=== PATIENT | female | born 1975 | race Caucasian/White ===

== ENCOUNTER 2019-06-13 18:35 | Emergency (ER) | payer OTHER, MEDICAID, SELFPAY ==
[2019-06-13 18:55] VITALS: BP 154/96; PULSE 85; RESP 16; TEMP 36.3; O2SAT 99; BMI 26.1
--- NOTE | 2019-06-13 19:20 | PC.NURSE ---
pt resting in bed. reports 51 days sober ETOH. having swelling of hands and feet. no swelling noted on assessment. 2+ pulses +CSM. reports yesterday she felt achey and fatigued and h/o low iron. AAOx3, lungs clear. connected to cardiac monitoring. 84 NSR. 20G IV placed and labs drawn and sent per protocol orders. awaiting MD assessment.
[2019-06-13 19:33] LABS: Prothrombin Time 11.9 SECONDS (10.1-12.7)
[2019-06-13 19:38] LABS: Blood Urea Nitrogen 15 mg/dL (7-17); Calcium 9.5 mg/dL (8.4-10.2); Carbon Dioxide 26 mmol/L (22-32); Chloride 101 mmol/L (98-107); Estimated Glomerular Filt Rate > 60.0 mL/min (>60); Glucose 132 mg/dL (70-100); Potassium 4.3 mmol/L (3.4-5.1); Sodium 136 mmol/L (137-145)
[2019-06-13 19:39] LABS: HEMOLYSIS 76 (0-50)
[2019-06-13 19:47] LABS: Add Manual Diff / Slide Review NO; Basophils Absolute Auto 200 /uL (0-100); Basophils Percent Auto 1.5 % (0-2); Eosinophils Absolute Auto 300 /uL (0-450); Eosinophils Percent Auto 2.7 % (2-4); Hematocrit 41.5 % (36-46); Hemoglobin 14.5 g/dL (12.0-16.0); Lymphocytes Absolute Auto 3400 /uL (1100-4500); Lymphocytes Percent Auto 31.4 % (25-40); Mean Corpuscular HGB Conc 34.9 % (30-36); Mean Corpuscular Hemoglobin 32.4 PG (26-34); Mean Corpuscular Volume 92.7 fL (80-100); Monocytes Absolute Auto 900 /uL (0-900); Monocytes Percent Auto 8.2 % (3-14); Neutrophils Absolute Auto 6100 /uL (1500-7000); Neutrophils Percent Auto 56.2 % (50-75); Platelet Count 227 X10^3/uL (150-400); Red Blood Cell Count 4.48 X10^6/uL (4.0-5.2); Red Cell Distribution Width 12.6 % (11.6-14.8); White Blood Cell Count 10.8 X10^3/uL (4.5-11.0)
--- NOTE | 2019-06-13 21:46 | ED.EXTPRO ---
HPI - Extremity Problem General Chief complaint: Extremity Problem,Nontraumatic Stated complaint: swelling in hands and feet Time Seen by Provider: 06/13/19 21:36 Source: patient Mode of arrival: ambulatory Limitations: no limitations History of Present Illness HPI Narrative: Patient is a 43-year-old female who presents with swelling and pain in both of her feet and hands for the last 5 days. 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 She says her hands have been hurting her feet are definitely swollen at the end of the day and hurt. She does work good tennis shoes while at work. She has no chest pain no shortness of breath no palpitations. She has a history of alcoholism she has been clean for 51 days. She also has a remote history of diabetes but lost a bunch of weight. No previous history of neuropathy. Related Data Home Medications Medication Instructions Recorded Confirmed risperidone [Risperdal] 1 mg PO HS #0 05/20/11 Previous Rx's Medication Instructions Recorded cyclobenzaprine 10 mg PO TIDPRN #60 06/07/13 epinephrine [EpiPen 2-Amadeo] 0.3 mg IM SEE INSTRUCTIONS #1 kit 07/24/13 Allergies Allergy/AdvReac Type Severity Reaction Status Date / Time acetaminophen [From PERCOCET] Allergy Unknown Verified 06/13/19 18:55 aspirin [From PERCODAN] Allergy Unknown Verified 06/13/19 18:55 lithium [LITHIUM] Allergy Unknown Verified 06/13/19 18:55 morphine [MORPHINE] Allergy Unknown HIVES Verified 06/13/19 18:55 oxycodone [From PERCODAN] Allergy Unknown Verified 06/13/19 18:55 Review of Systems Review of Systems ROS Unobtainable: All systems reviewed & are unremarkable except as noted in HPI and below Constitutional Constitutional: Denies chills, Denies fever(s), Denies lethargy and Denies weakness Cardiovascular Cardiovascular: Denies chest pain, Denies irregular heart rhythm, Denies lightheadedness, Denies palpitations, Denies dyspnea, Denies dyspnea on exertion and Denies orthopnea Respiratory Respiratory: Denies cough, Denies dyspnea, Denies dyspnea on exertion and Denies wheezing Gastrointestinal Gastrointestinal: Denies abdominal pain, Denies change in bowel habits, Denies diarrhea, Denies nausea and Denies vomiting Musculoskeletal Musculoskeletal: Reports as per HPI Integumentary/Breasts Skin/Breast: Denies pruritus, Denies erythema, Denies rash and Denies wounds Neurologic Neurologic: Denies weakness Endocrine Endocrine: Denies palpitations Allergic/Immunologic Allergic/Immunologic: Denies wheezing [facility] Medical History Alcoholism (Acute) Social History (Updated 06/13/19 @ 21:52 by Eve Mantilla DO) Smoking Status: Current every day smoker alcohol intake: former Social History Smoking Status: Current every day smoker alcohol intake: former Exam Initial Vital Signs Initial Vital Signs: Vital Signs Temperature 97.3 F L 06/13/19 18:55 Pulse Rate 85 06/13/19 18:55 Respiratory Rate 16 06/13/19 18:55 Blood Pressure 154/96 H 06/13/19 18:55 Pulse Oximetry 99 06/13/19 18:55 GENERAL: Well-appearing, well-nourished and in no acute distress. HEENT: Head atraumatic,EOMI, pupils reactive, face symmetric CARDIOVASCULAR: Regular rate and rhythm without murmurs, rubs or gallops. RESPIRATORY: Breath sounds equal bilaterally, no wheezes rales or rhonchi. ABDOMEN: Soft, nontender. Normoactive bowel sounds all 4 quadrants. No guarding or rebound. EXTREMITIES: Normal range of motion, no clubbing or edema. Minimal tenderness on the Neurovascularly intact NEUROLOGICAL: Alert and oriented x4.Normal gait and speech. SKIN: Warm, dry, no laceration, no petechiae, no rashes or lesions. Course Orders Ordered: ED Orders 06/13/19 19:15 Basic Metabolic Panel Stat Complete Blood Count AUTO DIFF Stat Prothrombin Time INR Stat Vital Signs Vital signs: Vital Signs - 8 hr 06/13/19 18:55 06/13/19 22:00 Temperature 97.3 F L 97.6 F Pulse Rate 85 63 Respiratory Rate 16 16 Blood Pressure 154/96 H 119/76 Pulse Oximetry 99 98 MDM - Extremity (Nontraumatic) Lab Data Result diagrams: 06/13/19 19:15 06/13/19 19:15 Labs: Lab Results 06/13/19 06/13/19 06/13/19 Range/Units 19:15 19:15 19:15 WBC 10.8 (4.5-11.0) X10^3/uL RBC 4.48 (4.0-5.2) X10^6/uL Hgb 14.5 (12.0-16.0) g/dL Hct 41.5 (36-46) % MCV 92.7 (80-100) fL MCH 32.4 (26-34) PG MCHC 34.9 (30-36) % RDW 12.6 (11.6-14.8) % Plt Count 227 (150-400) X10^3/uL Neut % (Auto) 56.2 (50-75) % Lymph % (Auto) 31.4 (25-40) % [place] % (Auto) 8.2 (3-14) % Eos % (Auto) 2.7 (2-4) % Baso % (Auto) 1.5 (0-2) % Neut # (Auto) 6100 (2084-7625) /uL Lymph # (Auto) 3400 (7586-4224) /uL [place] # (Auto) 900 (0-900) /uL Eos # (Auto) 300 (0-450) /uL Baso # (Auto) 200 H (0-100) /uL PT 11.9 (10.1-12.7) SECONDS INR 1.0 (0.9-1.3) Sodium 136 L (137-145) mmol/L Potassium 4.3 (3.4-5.1) mmol/L Chloride 101 (98-107) mmol/L Carbon Dioxide 26 (22-32) mmol/L BUN 15 (7-17) mg/dL Creatinine 0.50 L (0.52-1.04) mg/dL Estimated GFR > 60.0 (>60) mL/min BUN/Creatinine Ratio 30.0 H (6-22) Glucose 132 H (70-100) mg/dL Calcium 9.5 (8.4-10.2) mg/dL Urine Dip Bedside Urine Glucose Negative Bedside Urine Bilirubin - Negative Bedside Urine Ketone - Negative Urine Specific [place] 1.010 Bedside Urine Occult Blood - Negative Bedside Urine pH 7.5 Bedside Urine Protein - Negative Bedside Urine Urobilinogen - Negative Bedside Urine Nitrite - Negative Bedside Urine Leukocytes - Negative Esterase MDM Narrative Medical decision making narrative: The patient has no obvious or visual swelling of her lower extremities now this time. She started a new job as this is likely her body getting use to do work it is doing. At this time I see no need for any further imaging fall or testing. Blood work kidney function all reassuring. Discharge Plan Departure Patient Disposition: Home Clinical Impression: Venous stasis of both lower extremities Discharge Date/Time: 06/13/19 22:01 Instructions: DI for Edema Due to Venous Stasis Activity Restrictions/Additional Instructions: *You have been diagnosed with venous stasis *What to do: Recommend compression socks while at work. Elevating legs at night when he home. *Continue to take medications as directed Tylenol 1000 mg every 6 hours if needed for pain *Follow up with your primary care provider in 2-3 days *Return to ER if you should have increasing shortness of breath, leg pain, redness, fever or any new, worsening or concerning symptoms Prescriptions: No Action risperidone [Risperdal] 1 MG tablet 1 mg PO HS Qty: 0 RF: 0 cyclobenzaprine 10 MG tablet 10 mg PO TIDPRN Qty: 60 RF: 3 epinephrine [EpiPen 2-Amadeo] 0.3 MG/0.3 ML auto-injector 0.3 mg IM SEE INSTRUCTIONS Qty: 1 RF: 2
[2019-06-13 22:00] VITALS: BP 119/76; PULSE 63; RESP 16; TEMP 36.4; O2SAT 98
== END 2019-06-13 22:01 | disposition home or self-care (01) ==
PROVIDERS: Emergency Provider Emergency Medicine
DX: I87.8 Other specified disorders of veins (principal)
CPT/HCPCS: 36591; 80048; 81003; 85025; 85610; 93041; 99283; 99284

== ENCOUNTER 2020-11-24 13:27 | Emergency (ER) | payer OTHER, MEDICAID, SELFPAY ==
[2020-11-24] VITALS (11 sets, daily range): BP systolic 160–194; BP diastolic 95–115; PULSE 63–78; RESP 14–25; TEMP 36.6; O2SAT 97–98; BMI 23.5
--- NOTE | 2020-11-24 13:53 | DI.RAD.S_ITS ---
PROCEDURE: XR CHEST 1V INDICATIONS: HTN, cough TECHNIQUE: One view of the chest was acquired. COMPARISON: [facility], , CHEST 1VW (PORTABLE), 09/24/2014, 21:52. FINDINGS: Surgical changes and devices: None. Lungs and pleura: Lungs are clear. No pleural effusions or pneumothorax. Mediastinum: Mediastinal contours appear normal. Heart size is normal. Bones and chest wall: No suspicious bony lesions. Overlying soft tissues appear unremarkable. IMPRESSION: No acute cardiopulmonary abnormality. Dictated by: Ramses De M.D. on 11/24/2020 at 14:21 Approved by: Ramses De M.D. on 11/24/2020 at 14:22
--- NOTE | 2020-11-24 13:55 | ED.GENADULT ---
HPI - General Adult <VAHE Leonard - Last Filed: 11/24/20 16:34> General Chief complaint: Hypertension Stated complaint: OUT OF MEDICATION/HIGH BLOOD PRESS Time Seen by Provider: 11/24/20 13:31 Source: patient Mode of arrival: Ambulatory Limitations: no limitations History of Present Illness HPI narrative: 45yo female with a history of HTN and DM presents to the emergency department for a refill of her blood pressure medication. She states she has not taken in the past 3 months, she usually takes lisinopril 10 mg daily. She does not have a PCP at this time. Patient states when her blood pressure becomes elevated she gets episodes of dizziness (she describes as lightheadedness). She states over the past 3 days she has been intermittently dizzy which is worse when standing up, yesterday she had multiple episodes of vomiting. Today she remains nauseated without vomiting, she has been able to drink fluids but not eat any food due to the nausea. She denies any cough, rhinorrhea, chest pain, vertigo, shortness of breath, or any other concerns. Related Data Home Medications Medication Instructions Recorded Confirmed risperidone [Risperdal] 1 mg PO HS #0 05/20/11 Previous Rx's Medication Instructions Recorded cyclobenzaprine 10 mg PO TIDPRN #60 06/07/13 epinephrine [EpiPen 2-Amadeo] 0.3 mg IM SEE INSTRUCTIONS #1 kit 07/24/13 lisinopril 10 mg PO DAILY #30 tab 11/24/20 nitrofurantoin monohyd/m-cryst 100 mg PO BID 5 Days #10 cap 11/24/20 [Macrobid] ondansetron 4 mg PO Q6H PRN #10 tab 11/24/20 Allergies Allergy/AdvReac Type Severity Reaction Status Date / Time acetaminophen [From PERCOCET] Allergy Unknown Verified 11/24/20 13:43 aspirin [From PERCODAN] Allergy Unknown Verified 11/24/20 13:43 lithium [LITHIUM] Allergy Unknown Verified 11/24/20 13:43 morphine [MORPHINE] Allergy Unknown HIVES Verified 11/24/20 13:43 oxycodone [From PERCODAN] Allergy Unknown Verified 11/24/20 13:43 Review of Systems <VAHE Leonard - Last Filed: 11/24/20 16:34> Review of Systems Narrative: REVIEW OF SYSTEMS: GENERAL: Denies fevers. HENT: No head trauma. EYES: No loss of vision, double vision, eye pain, irritation or discharge. CARDIOVASCULAR: No chest pain or syncope. Reports some dizziness, see HPI. RESPIRATORY: No shortness of breath. GASTROINTESTINAL: Reports nausea vomiting, see HPI. MUSCULOSKELETAL: No weakness or injury. INTEGUMENTARY: No rash, lesions, or pruritus. NEURO: No memory loss, or confusion. Reports some dizziness, see HPI. Patient History <VAHE Leonard - Last Filed: 11/24/20 16:34> Medical History (Updated 11/24/20 @ 16:01 by VAHE Leonard) Alcoholism Social History Smoking Status: Current every day smoker alcohol intake: former Smoking Status: Current every day smoker alcohol intake frequency: a few times a week Substance Use Type: does not use Exam <VAHE Leonard - Last Filed: 11/24/20 16:34> Initial Vital Signs Initial Vital Signs: Vital Signs Temperature 97.8 F 11/24/20 13:38 Pulse Rate 73 11/24/20 13:38 Respiratory Rate 14 11/24/20 13:38 Blood Pressure 194/104 H 11/24/20 13:38 Pulse Oximetry 97 11/24/20 13:38 PHYSICAL EXAMINATION: GENERAL: Awake and alert. HENT: Normocephalic, atraumatic. Hearing intact. Oral mucosa is pink and moist. EYES: Conjunctiva pink, sclera white, no periorbital swelling. CARDIOVASCULAR: S1 and S2 sounds normal. Regular rate and rhythm, no murmurs, clicks, or bruits. No pedal edema. RESPIRATORY: Normal respiratory rate, trachea midline, airway patent. No stridor, nasal flaring or accessory muscle use. Lungs are clear in all lacey without wheeze, rhonchi, or crackles. GASTROINTESTINAL: Bowel sounds normoactive. Abdomen is soft and non-tender. No organomegaly, no palpable masses. MUSCULOSKELETAL: Normal gait and coordination. Equal tone and mass bilaterally. EXTREMITIES: CMS intact, no pedal edema. SKIN: Warm, dry, soft, appropriate color for ethnicity. No lesions, rashes, or wounds to visualized areas. NEURO: Alert and Oriented X 3. Good coordination. No ataxia, or sensory deficits, or cognitive issues. PSYCH: Appropriate affect and mood. <Sindhu Maher DO - Last Filed: 11/25/20 09:59> Initial Vital Signs Initial Vital Signs: Vital Signs Temperature 97.8 F 11/24/20 13:38 Pulse Rate 73 11/24/20 13:38 Respiratory Rate 14 11/24/20 13:38 Blood Pressure 194/104 H 11/24/20 13:38 Pulse Oximetry 97 11/24/20 13:38 Course <VAHE Leonard - Last Filed: 11/24/20 16:34> Course Course Narrative: Patient was given fluids and Zofran in the emergency department. Patient states she is feeling better--dizziness has completely resolved, was given a p.o. trial and patient was able to drink fluids and eat a snack without vomiting. Orders Ordered: Discontinued Medications Sodium Chloride (Normal Saline 0.9%) 1,000 mls @ 1,000 mls/hr IV BOLUS ONE Stop: 11/24/20 14:52 Last Infusion: 11/24/20 15:33 Dose: 0 mls/hr Documented by: Admin: 11/24/20 14:19 Dose: 1,000 mls/hr Documented by: SHANI Ondansetron HCl (Ondansetron 4 Mg/2 Ml Inj) 4 mg IV NOW ONE Stop: 11/24/20 13:54 Last Admin: 11/24/20 14:19 Dose: 4 mg Documented by: SHANI Consultations Consultation #1: Patient staffed with Dr. Maher. Vital Signs Vital signs: Vital Signs - 8 hr 11/24/20 13:38 11/24/20 13:39 11/24/20 14:00 Temperature 97.8 F Pulse Rate 73 75 78 Pulse Rate [Orthostatic Lying] Pulse Rate [Orthostatic Sitting] Pulse Rate [Orthostatic Standing] Respiratory Rate 14 24 Blood Pressure 194/104 H 194/101 H Blood Pressure [Orthostatic Lying] Blood Pressure [Orthostatic Sitting] Blood Pressure [Orthostatic Standing] Pulse Oximetry 97 98 97 11/24/20 14:01 11/24/20 14:23 11/24/20 14:30 Temperature Pulse Rate 76 66 75 Pulse Rate [Orthostatic Lying] Pulse Rate [Orthostatic Sitting] Pulse Rate [Orthostatic Standing] Respiratory Rate 25 H 19 17 Blood Pressure 185/99 H 179/101 H 190/95 H Blood Pressure [Orthostatic Lying] Blood Pressure [Orthostatic Sitting] Blood Pressure [Orthostatic Standing] Pulse Oximetry 98 98 98 11/24/20 15:00 11/24/20 15:10 11/24/20 15:13 Temperature Pulse Rate 70 Pulse Rate [Orthostatic Lying] 63 Pulse Rate [Orthostatic Sitting] 66 Pulse Rate [Orthostatic Standing] 74 Respiratory Rate 23 Blood Pressure 162/98 H 180/115 H Blood Pressure [Orthostatic Lying] 161/102 H Blood Pressure [Orthostatic Sitting] 165/109 H Blood Pressure [Orthostatic Standing] 180/115 H Pulse Oximetry 98 11/24/20 15:32 11/24/20 15:57 Temperature Pulse Rate 64 67 Pulse Rate [Orthostatic Lying] Pulse Rate [Orthostatic Sitting] Pulse Rate [Orthostatic Standing] Respiratory Rate 17 Blood Pressure 160/96 H Blood Pressure [Orthostatic Lying] Blood Pressure [Orthostatic Sitting] Blood Pressure [Orthostatic Standing] Pulse Oximetry 98 98 <Sindhu Maher, - Last Filed: 11/25/20 09:59> Orders Ordered: Discontinued Medications Sodium Chloride (Normal Saline 0.9%) 1,000 mls @ 1,000 mls/hr IV BOLUS ONE Stop: 11/24/20 14:52 Last Infusion: 11/24/20 15:33 Dose: 0 mls/hr Documented by: Admin: 11/24/20 14:19 Dose: 1,000 mls/hr Documented by: SHANI Ondansetron HCl (Ondansetron 4 Mg/2 Ml Inj) 4 mg IV NOW ONE Stop: 11/24/20 13:54 Last Admin: 11/24/20 14:19 Dose: 4 mg Documented by: SHANI Vital Signs Vital signs: Vital Signs - 8 hr 11/24/20 13:38 11/24/20 13:39 11/24/20 14:00 Temperature 97.8 F Pulse Rate 73 75 78 Pulse Rate [Orthostatic Lying] Pulse Rate [Orthostatic Sitting] Pulse Rate [Orthostatic Standing] Respiratory Rate 14 24 Blood Pressure 194/104 H 194/101 H Blood Pressure [Orthostatic Lying] Blood Pressure [Orthostatic Sitting] Blood Pressure [Orthostatic Standing] Pulse Oximetry 97 98 97 11/24/20 14:01 11/24/20 14:23 11/24/20 14:30 Temperature Pulse Rate 76 66 75 Pulse Rate [Orthostatic Lying] Pulse Rate [Orthostatic Sitting] Pulse Rate [Orthostatic Standing] Respiratory Rate 25 H 19 17 Blood Pressure 185/99 H 179/101 H 190/95 H Blood Pressure [Orthostatic Lying] Blood Pressure [Orthostatic Sitting] Blood Pressure [Orthostatic Standing] Pulse Oximetry 98 98 98 11/24/20 15:00 11/24/20 15:10 11/24/20 15:13 Temperature Pulse Rate 70 Pulse Rate [Orthostatic Lying] 63 Pulse Rate [Orthostatic Sitting] 66 Pulse Rate [Orthostatic Standing] 74 Respiratory Rate 23 Blood Pressure 162/98 H 180/115 H Blood Pressure [Orthostatic Lying] 161/102 H Blood Pressure [Orthostatic Sitting] 165/109 H Blood Pressure [Orthostatic Standing] 180/115 H Pulse Oximetry 98 11/24/20 15:32 11/24/20 15:57 Temperature Pulse Rate 64 67 Pulse Rate [Orthostatic Lying] Pulse Rate [Orthostatic Sitting] Pulse Rate [Orthostatic Standing] Respiratory Rate 17 Blood Pressure 160/96 H Blood Pressure [Orthostatic Lying] Blood Pressure [Orthostatic Sitting] Blood Pressure [Orthostatic Standing] Pulse Oximetry 98 98 Medical Decision Making <VAHE Leonard - Last Filed: 11/24/20 16:34> Medical Records Medical records reviewed: Yes I reviewed the patient's medical records. Lab Data Lab results reviewed: Yes I reviewed the patient's lab results. Result diagrams: 11/24/20 14:12 11/24/20 14:12 Labs: Lab Results 11/24/20 11/24/20 11/24/20 Range/Units 14:12 14:12 14:20 WBC 10.7 (4.5-11.0) X10^3/uL RBC 4.68 (4.0-5.2) X10^6/uL Hgb 16.3 H (12.0-16.0) g/dL Hct 46.7 H (36-46) % MCV 99.7 (80-100) fL MCH 34.8 H (26-34) PG MCHC 34.9 (30-36) % RDW 12.4 (11.6-14.8) % Plt Count 170 (150-400) X10^3/uL Neut % (Auto) 70.6 (50-75) % Lymph % (Auto) 21.0 L (25-40) % [place] % (Auto) 6.8 (3-14) % Eos % (Auto) 0.9 L (2-4) % Baso % (Auto) 0.7 (0-2) % Neut # (Auto) 7600 H (0057-8720) /uL Lymph # (Auto) 2300 (3153-0476) /uL [place] # (Auto) 700 (0-900) /uL Eos # (Auto) 100 (0-450) /uL Baso # (Auto) 100 (0-100) /uL Sodium 132 L (137-145) mmol/L Potassium 3.6 (3.4-5.1) mmol/L Chloride 98 (98-107) mmol/L Carbon Dioxide 31 (22-32) mmol/L BUN 6 L (7-17) mg/dL Creatinine 0.60 (0.52-1.04) mg/dL Estimated GFR > 60.0 (>60) mL/min BUN/Creatinine Ratio 10.0 (6-22) Glucose 163 H (70-100) mg/dL Calcium 9.7 (8.4-10.2) mg/dL Total Bilirubin 1.5 H (0.2-1.3) mg/dL AST 73 H (14-36) IU/L ALT 63 H (<35) IU/L Alkaline Phosphatase 97 (38-126) U/L Total Creatine Kinase 49 (30-135) U/L CK-MB (CK-2) TNP CK-MB (CK-2) Rel Index TNP Troponin I < 0.012 (0.01-0.034) ng/mL Total Protein 8.0 (6.3-8.2) g/dL Albumin 4.6 (3.5-5.0) g/dL Globulin 3.4 (1.7-4.1) g/dL Albumin/Globulin Ratio 1.4 (1.0-2.8) Lipase 67 (23-300) U/L Urine RBC (0-5/HPF) Urine WBC (0-5/HPF) Ur Squamous Epith Cells (0-5/HPF) Ur Transition Epith Cell (0-5/HPF) Urine Bacteria (None) Hyaline Casts (None) WBC Casts (None) Ur Culture Indicated? SARS-CoV-2 (PCR) Negative (Negative) 11/24/20 Range/Units 14:45 WBC (4.5-11.0) X10^3/uL RBC (4.0-5.2) X10^6/uL Hgb (12.0-16.0) g/dL Hct (36-46) % MCV (80-100) fL MCH (26-34) PG MCHC (30-36) % RDW (11.6-14.8) % Plt Count (150-400) X10^3/uL Neut % (Auto) (50-75) % Lymph % (Auto) (25-40) % [place] % (Auto) (3-14) % Eos % (Auto) (2-4) % Baso % (Auto) (0-2) % Neut # (Auto) (9342-0323) /uL Lymph # (Auto) (6596-5077) /uL [place] # (Auto) (0-900) /uL Eos # (Auto) (0-450) /uL Baso # (Auto) (0-100) /uL Sodium (137-145) mmol/L Potassium (3.4-5.1) mmol/L Chloride (98-107) mmol/L Carbon Dioxide (22-32) mmol/L BUN (7-17) mg/dL Creatinine (0.52-1.04) mg/dL Estimated GFR (>60) mL/min BUN/Creatinine Ratio (6-22) Glucose (70-100) mg/dL Calcium (8.4-10.2) mg/dL Total Bilirubin (0.2-1.3) mg/dL AST (14-36) IU/L ALT (<35) IU/L Alkaline Phosphatase (38-126) U/L Total Creatine Kinase (30-135) U/L CK-MB (CK-2) CK-MB (CK-2) Rel Index Troponin I (0.01-0.034) ng/mL Total Protein (6.3-8.2) g/dL Albumin (3.5-5.0) g/dL Globulin (1.7-4.1) g/dL Albumin/Globulin Ratio (1.0-2.8) Lipase (23-300) U/L Urine RBC 0-1/hpf (0-5/HPF) Urine WBC 10-30/hpf H (0-5/HPF) Ur Squamous Epith Cells 1-5 /hpf (0-5/HPF) Ur Transition Epith Cell 1-5/hpf (0-5/HPF) Urine Bacteria Many (>30) H (None) Hyaline Casts 1-5/lpf (None) WBC Casts 0-1/lpf (None) Ur Culture Indicated? Specimen cultured SARS-CoV-2 (PCR) (Negative) Urine Dip Bedside Urine Glucose Negative Bedside Urine Bilirubin - Negative Bedside Urine Ketone +/- 5 Urine Specific [place] 1.020 Bedside Urine Occult Blood +/- Bedside Urine pH 6.0 Bedside Urine Protein + 30 Bedside Urine Urobilinogen - Negative Bedside Urine Nitrite + Positive Bedside Urine Leukocytes - Negative Esterase Point of care testing: Urine Dip Bedside Urine Glucose Negative Bedside Urine Bilirubin - Negative Bedside Urine Ketone +/- 5 Urine Specific [place] 1.020 Bedside Urine Occult Blood +/- Bedside Urine pH 6.0 Bedside Urine Protein + 30 Bedside Urine Urobilinogen - Negative Bedside Urine Nitrite + Positive Bedside Urine Leukocytes - Negative Esterase Imaging Data Chest x-ray: Radiologist's Impression: [address] [id number] ReportSigned Patient: Lien Ariza [facility]#: [id number]: 1975Acct:[id number]/Sex: 45 / FDate of Service: 11/24/20Loc: EDAccession Number: [id number] Procedure: XR chest 1V Ordering Provider: Jolanta Wild PROCEDURE: XR CHEST 1V INDICATIONS: HTN, cough TECHNIQUE: One view of the chest was acquired. COMPARISON: [facility], , CHEST 1VW (PORTABLE), 09/24/2014, 21:52. FINDINGS: Surgical changes and devices: None. Lungs and pleura: Lungs are clear. No pleural effusions or pneumothorax. Mediastinum: Mediastinal contours appear normal. Heart size is normal. Bones and chest wall: No suspicious bony lesions. Overlying soft tissues appear unremarkable. IMPRESSION: No acute cardiopulmonary abnormality. Dictated by: Ramses De M.D. on 11/24/2020 at 14:21 Approved by: Ramses De M.D. on 11/24/2020 at 14:22 ECG Data Interpretation: 1359: Sinus rhythm, rate 69, AL interval 118, QTC 488. No ST elevation or ST depression. T-wave inversion noted in V1 V2. No prior comparison. No ectopy. EKG also viewed by Dr. Maher per protocol. MDM Narrative Medical decision making narrative: 45-year-old female with history of hypertension, presents emergency department for refill of her medication lightheadedness and vomiting. I suspect patient's symptoms are most likely caused by urinary tract infection. She was nontender on examination, laboratory work within normal limits which is less concerning for acute abdominal infection. Urinalysis shows bacteria, nitrates, leukocytes. She was started on Macrobid. Less likely ACS given non remarkable EKG, negative troponin and chest x-ray. Additionally, patient's symptoms completely resolved including her dizziness and nausea after administration of fluids and Zofran. She was able to tolerate food and fluids without vomiting. Patient was started on Macrobid, she was given ondansetron to take home as well. Her blood pressure was elevated. However, she did not have any signs of hypertensive crisis such as headache, vision changes, or other neurological issues. She was given a month's refill of her lisinopril and a card to establish a primary care provider to follow-up. Return precautions given for new or worsening symptoms. She agreed to plan of care verbalized understanding. <Sindhu Maher, DO - Last Filed: 11/25/20 09:59> Lab Data Lab results reviewed: Yes I reviewed the patient's lab results. Labs: Lab Results 11/24/20 11/24/20 11/24/20 Range/Units 14:12 14:12 14:20 WBC 10.7 (4.5-11.0) X10^3/uL RBC 4.68 (4.0-5.2) X10^6/uL Hgb 16.3 H (12.0-16.0) g/dL Hct 46.7 H (36-46) % MCV 99.7 (80-100) fL MCH 34.8 H (26-34) PG MCHC 34.9 (30-36) % RDW 12.4 (11.6-14.8) % Plt Count 170 (150-400) X10^3/uL Neut % (Auto) 70.6 (50-75) % Lymph % (Auto) 21.0 L (25-40) % [place] % (Auto) 6.8 (3-14) % Eos % (Auto) 0.9 L (2-4) % Baso % (Auto) 0.7 (0-2) % Neut # (Auto) 7600 H (2766-1366) /uL Lymph # (Auto) 2300 (5070-3603) /uL [place] # (Auto) 700 (0-900) /uL Eos # (Auto) 100 (0-450) /uL Baso # (Auto) 100 (0-100) /uL Sodium 132 L (137-145) mmol/L Potassium 3.6 (3.4-5.1) mmol/L Chloride 98 (98-107) mmol/L Carbon Dioxide 31 (22-32) mmol/L BUN 6 L (7-17) mg/dL Creatinine 0.60 (0.52-1.04) mg/dL Estimated GFR > 60.0 (>60) mL/min BUN/Creatinine Ratio 10.0 (6-22) Glucose 163 H (70-100) mg/dL Calcium 9.7 (8.4-10.2) mg/dL Total Bilirubin 1.5 H (0.2-1.3) mg/dL AST 73 H (14-36) IU/L ALT 63 H (<35) IU/L Alkaline Phosphatase 97 (38-126) U/L Total Creatine Kinase 49 (30-135) U/L CK-MB (CK-2) TNP CK-MB (CK-2) Rel Index TNP Troponin I < 0.012 (0.01-0.034) ng/mL Total Protein 8.0 (6.3-8.2) g/dL Albumin 4.6 (3.5-5.0) g/dL Globulin 3.4 (1.7-4.1) g/dL Albumin/Globulin Ratio 1.4 (1.0-2.8) Lipase 67 (23-300) U/L Urine RBC (0-5/HPF) Urine WBC (0-5/HPF) Ur Squamous Epith Cells (0-5/HPF) Ur Transition Epith Cell (0-5/HPF) Urine Bacteria (None) Hyaline Casts (None) WBC Casts (None) Ur Culture Indicated? SARS-CoV-2 (PCR) Negative (Negative) 11/24/20 Range/Units 14:45 WBC (4.5-11.0) X10^3/uL RBC (4.0-5.2) X10^6/uL Hgb (12.0-16.0) g/dL Hct (36-46) % MCV (80-100) fL MCH (26-34) PG MCHC (30-36) % RDW (11.6-14.8) % Plt Count (150-400) X10^3/uL Neut % (Auto) (50-75) % Lymph % (Auto) (25-40) % [place] % (Auto) (3-14) % Eos % (Auto) (2-4) % Baso % (Auto) (0-2) % Neut # (Auto) (5635-0886) /uL Lymph # (Auto) (9941-1458) /uL [place] # (Auto) (0-900) /uL Eos # (Auto) (0-450) /uL Baso # (Auto) (0-100) /uL Sodium (137-145) mmol/L Potassium (3.4-5.1) mmol/L Chloride (98-107) mmol/L Carbon Dioxide (22-32) mmol/L BUN (7-17) mg/dL Creatinine (0.52-1.04) mg/dL Estimated GFR (>60) mL/min BUN/Creatinine Ratio (6-22) Glucose (70-100) mg/dL Calcium (8.4-10.2) mg/dL Total Bilirubin (0.2-1.3) mg/dL AST (14-36) IU/L ALT (<35) IU/L Alkaline Phosphatase (38-126) U/L Total Creatine Kinase (30-135) U/L CK-MB (CK-2) CK-MB (CK-2) Rel Index Troponin I (0.01-0.034) ng/mL Total Protein (6.3-8.2) g/dL Albumin (3.5-5.0) g/dL Globulin (1.7-4.1) g/dL Albumin/Globulin Ratio (1.0-2.8) Lipase (23-300) U/L Urine RBC 0-1/hpf (0-5/HPF) Urine WBC 10-30/hpf H (0-5/HPF) Ur Squamous Epith Cells 1-5 /hpf (0-5/HPF) Ur Transition Epith Cell 1-5/hpf (0-5/HPF) Urine Bacteria Many (>30) H (None) Hyaline Casts 1-5/lpf (None) WBC Casts 0-1/lpf (None) Ur Culture Indicated? Specimen cultured SARS-CoV-2 (PCR) (Negative) Urine Dip Bedside Urine Glucose Negative Bedside Urine Bilirubin - Negative Bedside Urine Ketone +/- 5 Urine Specific [place] 1.020 Bedside Urine Occult Blood +/- Bedside Urine pH 6.0 Bedside Urine Protein + 30 Bedside Urine Urobilinogen - Negative Bedside Urine Nitrite + Positive Bedside Urine Leukocytes - Negative Esterase Point of care testing: Urine Dip Bedside Urine Glucose Negative Bedside Urine Bilirubin - Negative Bedside Urine Ketone +/- 5 Urine Specific [place] 1.020 Bedside Urine Occult Blood +/- Bedside Urine pH 6.0 Bedside Urine Protein + 30 Bedside Urine Urobilinogen - Negative Bedside Urine Nitrite + Positive Bedside Urine Leukocytes - Negative Esterase ECG Data Attestation: I personally reviewed and interpreted this ECG as follows: Prior ECG tracings: available for review Interpretation: Sinus rhythm, elevation 2 and. No depression. Patient has prior EKG from 2013 with similar changes. Discharge Plan Departure Patient Disposition: Home Clinical Impression: UTI (urinary tract infection) Qualifiers: Urinary tract infection type: acute cystitis Hematuria presence: without hematuria Qualified Code(s): N30.00 - Acute cystitis without hematuria Vomiting Qualifiers: Vomiting type: unspecified Vomiting Intractability: non-intractable Nausea presence: with nausea Qualified Code(s): R11.2 - Nausea with vomiting, unspecified HTN (hypertension) Qualifiers: Hypertension type: unspecified Qualified Code(s): I10 - Essential (primary) hypertension Instructions: DI for High Blood Pressure, DI for Urinary Tract Infection (UTI) Activity Restrictions/Additional Instructions: Thank you for entrusting me with your care today. As discussed, your urinalysis is positive for a urinary tract infection, this may have been contributing to your dizziness and vomiting. I prescribed you an antibiotic, please complete the entire course. I have also prescribed you an anti nausea medication. I have given you a month's worth of your lisinopril. Please establish a primary care provider as soon as possible for follow-up. Return emergency department for any new or worsening symptoms especially fever, severe pain, uncontrollable vomiting, or any other concerns. Prescriptions: New nitrofurantoin monohyd/m-cryst [Macrobid] 100 mg capsule 100 mg PO BID 5 Days Qty: 10 RF: 0 ondansetron 4 mg tablet,disintegrating 4 mg PO Q6H PRN (Reason: nausea and vomiting) Qty: 10 RF: 0 lisinopril 10 mg tablet 10 mg PO DAILY Qty: 30 RF: 0 No Action risperidone [Risperdal] 1 MG tablet 1 mg PO HS Qty: 0 RF: 0 cyclobenzaprine 10 MG tablet 10 mg PO TIDPRN Qty: 60 RF: 3 epinephrine [EpiPen 2-Amadeo] 0.3 MG/0.3 ML auto-injector 0.3 mg IM SEE INSTRUCTIONS Qty: 1 RF: 2 <Sindhu Maher DO - Last Filed: 11/25/20 09:59> Cosign ED Attending Madelineature Attestation: I was immediately available in the department for consultation. Documentation has been reviewed.
[2020-11-24] MEDS: SODIUM CHLORIDE 0.9% 1,000 ML 1000 ML IV (14:19)
[2020-11-24] MEDS: ONDANSETRON 4 MG/2 ML INJ IV (14:19)
[2020-11-24 14:25] LABS: Add Manual Diff / Slide Review NO; Basophils Absolute Auto 100 /uL (0-100); Basophils Percent Auto 0.7 % (0-2); Eosinophils Absolute Auto 100 /uL (0-450); Eosinophils Percent Auto 0.9 % (2-4); Hematocrit 46.7 % (36-46); Hemoglobin 16.3 g/dL (12.0-16.0); Lymphocytes Absolute Auto 2300 /uL (1100-4500); Mean Corpuscular HGB Conc 34.9 % (30-36); Mean Corpuscular Hemoglobin 34.8 PG (26-34); Mean Corpuscular Volume 99.7 fL (80-100); Monocytes Absolute Auto 700 /uL (0-900); Monocytes Percent Auto 6.8 % (3-14); Neutrophils Absolute Auto 7600 /uL (1500-7000); Neutrophils Percent Auto 70.6 % (50-75); Platelet Count 170 X10^3/uL (150-400); Red Blood Cell Count 4.68 X10^6/uL (4.0-5.2); Red Cell Distribution Width 12.4 % (11.6-14.8); White Blood Cell Count 10.7 X10^3/uL (4.5-11.0)
[2020-11-24 14:40] LABS: Alanine Aminotransferase 63 IU/L (<35); Albumin 4.6 g/dL (3.5-5.0); Albumin Globulin Ratio 1.4 (1.0-2.8); Alkaline Phosphatase 97 U/L (38-126); Aspartate Aminotransferase 73 IU/L (14-36); Bilirubin Total 1.5 mg/dL (0.2-1.3); Blood Urea Nitrogen 6 mg/dL (7-17); Calcium 9.7 mg/dL (8.4-10.2); Carbon Dioxide 31 mmol/L (22-32); Chloride 98 mmol/L (98-107); Creatine Kinase 49 U/L (30-135); Estimated Glomerular Filt Rate > 60.0 mL/min (>60); Globulin 3.4 g/dL (1.7-4.1); Glucose 163 mg/dL (70-100); HEMOLYSIS 21 (0-50); Lipase 67 U/L (23-300); Potassium 3.6 mmol/L (3.4-5.1); Sodium 132 mmol/L (137-145)
[2020-11-24 14:47] LABS: COVID19 -Nasal RAPID Negative (Negative)
[2020-11-24 14:49] LABS: Troponin I < 0.012 ng/mL (0.01-0.034)
--- NOTE | 2020-11-24 15:10 | PC.NURSE ---
Stopped vomiting last night
[2020-11-24 15:26] LABS: Bacteria Urine Many (>30); Hyaline Casts Urine 1-5/LPF; RBC Urine 0-1/HPF (0-5/HPF); Squamous Epithelial Cell Urine 1-5 /HPF (0-5/HPF); Transitional Epi Cells Urine 1-5/HPF (0-5/HPF); WBC Urine 10-30/HPF (0-5/HPF); White Blood Cell Casts Urine 0-1/LPF
[2020-11-24 15:27] LABS: Culture Indicated Urine Specimen Cultured
== END 2020-11-24 16:20 | disposition home or self-care (01) ==
PROVIDERS: Emergency Provider Nurse Practitioner
DX: N30.00 Acute cystitis without hematuria (principal); R11.2 Nausea with vomiting, unspecified; I10 Essential (primary) hypertension; R42 Dizziness and giddiness; R05 Cough; Z20.822 Contact with and (suspected) exposure to COVID-19
CPT/HCPCS: 36415; 71045; 80053; 81003; 81015; 82550; 83690; 84484; 85025; 87077; 87086; 87186; 87635; 93005; 93010; 96361; 96374; 99283; 99284; C9803; J2405

== ENCOUNTER 2021-02-10 17:57 | Emergency (ER) | payer OTHER, MEDICAID, SELFPAY ==
--- NOTE | 2021-02-10 18:09 | DI.RAD.S_ITS ---
PROCEDURE: XR SHOULDER RT MIN 2V INDICATIONS: fall, anterior shoulder pain/swelling TECHNIQUE: Two views of the shoulder were acquired. COMPARISON: None. FINDINGS: Displaced and comminuted fracture of the midclavicular diaphysis. Remaining osseous structures intact. IMPRESSION: Displaced and comminuted mid clavicular diaphyseal fracture. Dictated by: Beny Hanna M.D. on 02/10/2021 at 18:33 Approved by: Beny Hanna M.D. on 02/10/2021 at 18:57
[2021-02-10 18:20] VITALS: BP 153/99; PULSE 110; RESP 14; TEMP 37.7; O2SAT 96; BMI 24.9
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
[2021-02-10] MEDS: KETOROLAC 30 MG/ML VIAL 60 MG IM (19:48)
[2021-02-10 20:11] VITALS: BP 158/103; PULSE 84; O2SAT 99
== END 2021-02-10 20:11 | disposition home or self-care (01) ==
PROVIDERS: Emergency Provider Emergency Medicine
DX: S42.021A Displaced fracture of shaft of right clavicle, initial encounter for closed fracture (principal); W10.9XXA Fall (on) (from) unspecified stairs and steps, initial encounter
CPT/HCPCS: 73030; 96372; 99283; J1885

== ENCOUNTER 2021-04-05 23:07 | Emergency (ER) | payer OTHER, MEDICAID, SELFPAY ==
[2021-04-05 23:00] VITALS: TEMP 37.1; BMI 25.7
--- NOTE | 2021-04-05 23:02 | DI.CT.S_ITS ---
PROCEDURE: CT CHEST ABD PEL W CON INDICATIONS: Trauma TECHNIQUE: After the administration of intravenous contrast, 5 mm thick sections acquired from the lung apices to the symphysis. 5 mm coronal and sagittal reformats were performed, with additional 7 mm MIP reformats through the lungs. For radiation dose reduction, the following was used: automated exposure control, adjustment of mA and/or kV according to patient size. COMPARISON: [facility], CR, XR SHOULDER RT MIN 2V, 02/10/2021, 18:23. [facility], CR, XR CLAVICLE RIGHT, 03/02/2021, 14:48. [facility], CR, XR CLAVICLE RIGHT, 03/24/2021, 10:27. FINDINGS: Image quality: Excellent. CHEST: Lungs and pleura: No acute airspace opacities. No pleural effusions or pneumothorax. Central and peripheral airways appear patent and normal in caliber. Mediastinum: Heart size is normal. No pericardial effusion. No mediastinal or hilar adenopathy by size criteria. Thoracic aorta and central pulmonary arteries are normal in size. Esophagus is normal in caliber. There is a moderate-sized hiatal hernia. Chest wall: No axillary or supraclavicular adenopathy by size criteria. Thyroid gland is normal. ABDOMEN: Solid organs: Hepatic steatosis. Liver is normal in size and enhancement. Gallbladder is normal.. Biliary system is non dilated. Pancreas enhances normally. Spleen is normal in size and enhancement. No adrenal nodules. Kidneys demonstrate normal size and enhancement, without hydronephrosis. Peritoneum and bowel: Bowel loops demonstrate normal wall thickness and caliber. No free fluid or air. Nodes and vessels: No retroperitoneal or mesenteric adenopathy by size criteria. Aorta and inferior vena cava are normal in size. Miscellaneous: No ventral hernias. PELVIS: Genitourinary: Bladder wall thickness is normal. Miscellaneous: No inguinal hernias or adenopathy. Bones: There a comminuted right clavicular shaft fracture. Callus formation is present. No suspicious bony lesions. No vertebral body compression fractures. IMPRESSION: 1. No traumatic visceral injuries in thorax, abdomen or pelvis. 2. Comminuted right clavicular shaft fracture with callus formation consistent with subacute fracture. No significant discrepancy with the night shift manager radiology preliminary report. Dictated by: Antonio Sanabria M.D. on 04/06/2021 at 7:34 Approved by: Antonio Sanabria M.D. on 04/06/2021 at 9:08
--- NOTE | 2021-04-05 23:02 | DI.CT.S_ITS ---
PROCEDURE: CT CERVICAL SPINE WO CON INDICATIONS: Trauma TECHNIQUE: Noncontrast 3 mm thick sections acquired from the skull base to the T4 level. Sagittal and coronal reformats were then constructed. For radiation dose reduction, the following was used: automated exposure control, adjustment of mA and/or kV according to patient size. COMPARISON: None. FINDINGS: Image quality: Excellent. Bones: No fractures or dislocations. Visualized superior ribs are intact. Spine degenerative disc disease and facet arthropathy. Soft tissues: Prevertebral soft tissues are normal in thickness. No paravertebral hematomas. No apical pneumothoraces. IMPRESSION: No fracture. No acute osseous lesion. If symptoms and/or clinical suspicion for pathology persists, evaluation with MRI should be considered for further assessment. Dictated by: Noris Monreal MD, PhD on 04/06/2021 at 7:40 Approved by: Noris Monreal MD, PhD on 04/06/2021 at 7:43
--- NOTE | 2021-04-05 23:02 | DI.CT.S_ITS ---
PROCEDURE: CT HEAD/BRAIN WO CON INDICATIONS: Trauma TECHNIQUE: Noncontrast 4.5 mm thick angled axial sections acquired from the foramen magnum to the vertex, with coronal and sagittal reformats. For radiation dose reduction, the following was used: automated exposure control, adjustment of mA and/or kV according to patient size. COMPARISON: None. FINDINGS: Image quality: Excellent. CSF spaces: Basal cisterns are patent. No extra-axial fluid collections. Ventricles are normal in size and shape. Brain: No midline shift. No intracranial masses or hemorrhage. Sanchez-white matter interface is normal. Skull and face: Calvarium and visualized facial bones are intact, without suspicious lesions. Sinuses: Visualized sinuses and mastoids are clear. IMPRESSION: No acute intracranial disease process. Dictated by: Noris Monreal MD, PhD on 04/06/2021 at 7:11 Approved by: Noris Monreal MD, PhD on 04/06/2021 at 7:12
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
[2021-04-05 23:26] LABS: Add Manual Diff / Slide Review NO; Basophils Absolute Auto 100 /uL (0-100); Eosinophils Absolute Auto 100 /uL (0-450); Hematocrit 43.1 % (36-46); Hemoglobin 15.3 g/dL (12.0-16.0); Lymphocytes Absolute Auto 5800 /uL (1100-4500); Mean Corpuscular HGB Conc 35.6 % (30-36); Mean Corpuscular Hemoglobin 35.5 PG (26-34); Mean Corpuscular Volume 99.9 fL (80-100); Monocytes Absolute Auto 700 /uL (0-900); Monocytes Percent Auto 5.3 % (3-14); Neutrophils Absolute Auto 7300 /uL (1500-7000); Neutrophils Percent Auto 51.7 % (50-75); Platelet Count 232 X10^3/uL (150-400); Red Blood Cell Count 4.32 X10^6/uL (4.0-5.2); Red Cell Distribution Width 12.2 % (11.6-14.8); White Blood Cell Count 14.1 X10^3/uL (4.5-11.0)
[2021-04-05 23:32] LABS: Alanine Aminotransferase 57 IU/L (<35); Albumin 4.6 g/dL (3.5-5.0); Albumin Globulin Ratio 1.3 (1.0-2.8); Alkaline Phosphatase 107 U/L (38-126); Aspartate Aminotransferase 61 IU/L (14-36); BUN Creatinine Ratio 19.6 (6-22); Bilirubin Total 0.5 mg/dL (0.2-1.3); Blood Urea Nitrogen 9 mg/dL (7-17); Calcium 9.3 mg/dL (8.4-10.2); Carbon Dioxide 20 mmol/L (22-32); Chloride 103 mmol/L (98-107); Estimated Glomerular Filt Rate > 60.0 mL/min (>60); Globulin 3.5 g/dL (1.7-4.1); Glucose 320 mg/dL (70-100); HEMOLYSIS 37 (0-50); Lipase 193 U/L (23-300); Potassium 3.6 mmol/L (3.4-5.1); Sodium 141 mmol/L (137-145); Total Protein 8.1 g/dL (6.3-8.2)
[2021-04-05 23:38] VITALS: PULSE 84; O2SAT 97
[2021-04-05 23:41] LABS: Ethanol (ETOH) 324 mg/dL
[2021-04-05] MEDS: SODIUM CHLORIDE 0.9% 1,000 ML 150 ML IV (23:42)
[2021-04-05 23:51] VITALS: BP 113/76; PULSE 86; RESP 19; O2SAT 95
[2021-04-06] VITALS: BP 133/87; PULSE 95; RESP 24; O2SAT 97
[2021-04-06 00:30] VITALS: BP 119/79; PULSE 87; RESP 17; O2SAT 97
[2021-04-06 00:35] LABS: Appearance Urine UA CLEAR; Bilirubin Urine UA NEGATIVE (NEGATIVE); Glucose Urine UA 1+ g/dL (Negative); Ketones Urine UA NEGATIVE (NEGATIVE); Leukocyte Esterase Urine UA NEGATIVE (NEGATIVE); Nitrite Urine UA POSITIVE (Negative); Occult Blood Urine UA NEGATIVE (Negative); Protein Urine UA NEGATIVE (Negative); RBC Urine None Seen (0-5/HPF); Specific Gravity Urine UA <=1.005 (1.000-1.035); Urobilinogen Urine UA 0.2 E.U./dL (0.2); WBC Urine None Seen (0-5/HPF)
[2021-04-06 00:45] LABS: Color Urine UA Straw
[2021-04-06 00:46] LABS: Bacteria Urine Many (>30); Culture Indicated Urine Specimen Cultured
[2021-04-06 01:00] VITALS: BP 123/80; PULSE 84; RESP 23; TEMP 37.2; O2SAT 98
--- NOTE | 2021-04-08 16:00 | PC.NURSE ---
pt friend zach crockett here to cigar packer and picker her d/c paperwork. called and verified with dwayne.
== END 2021-04-06 01:19 | disposition home or self-care (01) ==
PROVIDERS: Emergency Provider Emergency Medicine
DX: S42.021A Displaced fracture of shaft of right clavicle, initial encounter for closed fracture (principal); M54.2 Cervicalgia; V87.7XXA Person injured in collision between other specified motor vehicles (traffic), initial encounter
CPT/HCPCS: 36415; 51701; 70450; 71260; 72125; 74177; 80053; 80320; 81001; 81025; 83690; 85025; 86850; 86900; 86901; 87077; 87086; 87186; 93005; 93010; 96360; 96361; 99284; Q9967

== ENCOUNTER → 2021-12-06 13:19 | Outpatient (CLI) | payer OTHER, MEDICAID, SELFPAY ==
[2021-12-06 13:55] LABS: Add Manual Diff / Slide Review NO; Basophils Absolute Auto 100 /uL (0-100); Basophils Percent Auto 0.7 % (0-2); Eosinophils Absolute Auto 300 /uL (0-450); Eosinophils Percent Auto 2.8 % (2-4); Hematocrit 44.4 % (36-46); Hemoglobin 15.3 g/dL (12.0-16.0); Lymphocytes Absolute Auto 3400 /uL (1100-4500); Lymphocytes Percent Auto 33.4 % (25-40); Mean Corpuscular HGB Conc 34.5 % (30-36); Mean Corpuscular Hemoglobin 35.8 PG (26-34); Mean Corpuscular Volume 103.9 fL (80-100); Monocytes Absolute Auto 800 /uL (0-900); Monocytes Percent Auto 8.2 % (3-14); Neutrophils Absolute Auto 5600 /uL (1500-7000); Neutrophils Percent Auto 54.9 % (50-75); Platelet Count 202 X10^3/uL (150-400); Red Blood Cell Count 4.27 X10^6/uL (4.0-5.2); Red Cell Distribution Width 12.2 % (11.6-14.8); White Blood Cell Count 10.2 X10^3/uL (4.5-11.0)
[2021-12-06 14:36] LABS: Hemoglobin A1C% w Est Avg Glu 6.1 % (4.0-6.0)
[2021-12-06 14:53] LABS: Alanine Aminotransferase 45 IU/L (<35); Albumin 4.4 g/dL (3.5-5.0); Albumin Globulin Ratio 1.4 (1.0-2.8); Alkaline Phosphatase 86 U/L (38-126); Aspartate Aminotransferase 59 IU/L (14-36); BUN Creatinine Ratio 11.1 (6-22); Bilirubin Total 1.3 mg/dL (0.2-1.3); Bilirubin Unconjugated 1.2 mg/dL (0.0-1.1); Blood Urea Nitrogen 7 mg/dL (7-17); Calcium 9.4 mg/dL (8.4-10.2); Carbon Dioxide 30 mmol/L (22-32); Chloride 98 mmol/L (98-107); Cholesterol 222 mg/dL (140-199); Estimated Glomerular Filt Rate > 60.0 mL/min (>60); Globulin 3.1 g/dL (1.7-4.1); Glucose 102 mg/dL (70-100); HDL Cholesterol 56 mg/dL (40-60); HEMOLYSIS 31 (0-50); LDL Cholesterol Calculated 118 mg/dL (<100); Potassium 4.3 mmol/L (3.4-5.1); Sodium 133 mmol/L (137-145); Total Protein 7.5 g/dL (6.3-8.2); Triglycerides 242 mg/dL (35-150)
[2021-12-06 15:33] LABS: Creatinine Urine Random 43.6 mg/dL
[2021-12-06 15:40] LABS: Microalbumin Urine Random < 0.6 mg/dL (0-1.6)
== END ==
PROVIDERS: PCP Registered Nurse; Referring Provider Registered Nurse; Visit Provider Registered Nurse
DX: E11.9 Type 2 diabetes mellitus without complications (principal); I10 Essential (primary) hypertension; Z82.49 Family history of ischemic heart disease and other diseases of the circulatory system; R74.8 Abnormal levels of other serum enzymes
CPT/HCPCS: 36415; 80053; 80061; 80076; 82043; 82570; 83036; 85025

== ENCOUNTER → 2022-05-27 16:37 | Outpatient (CLI) | payer OTHER, MEDICAID, SELFPAY ==
--- NOTE | 2022-05-27 16:39 | DI.RAD.S_ITS ---
PROCEDURE: XR SHOULDER RT MIN 2V INDICATIONS: right shoulder pain TECHNIQUE: 3 views of the shoulder were acquired. COMPARISON: [facility] [place], CR, XR CLAVICLE RIGHT, 12/10/2021, 10:56. [facility], CR, XR CLAVICLE RT, 05/27/2022, 16:40. [facility], CR, XR SHOULDER RT MIN 2V, 02/10/2021, 18:23. FINDINGS: Bones: Healing fracture deformity of the mid right clavicle. Fracture lucency slightly less distinct. Acromioclavicular joint is intact. Soft tissues: No suspicious soft tissue calcifications. IMPRESSION: Healing fracture deformity of the mid right clavicle. Dictated by: Tariq Granda [facility] Interpreted: Ramses James MD on 05/27/2022 at 17:00 Transcribed by: SHERI on 05/27/2022 at 17:01 Approved by: Ramses James M.D. on 05/27/2022 at 17:58
--- NOTE | 2022-05-27 16:39 | DI.RAD.S_ITS ---
PROCEDURE: XR SHOULDER LT MIN 2V INDICATIONS: LEFT SHOULDER PAIN TECHNIQUE: 3 views of the shoulder were acquired. COMPARISON: [facility], CR, XR SHOULDER RT MIN 2V, 02/10/2021, 18:23. FINDINGS: Bones: No fractures or dislocations. No suspicious bony lesions. Visualized ribs appear intact. Mild joint narrowing with periarticular osteophyte formation. Soft tissues: No suspicious soft tissue calcifications. IMPRESSION: Mild acromioclavicular and glenohumeral joint degeneration. Dictated by: Tariq Granda [facility] Interpreted: Ramses James MD on 05/27/2022 at 17:00 Transcribed by: SHERI on 05/27/2022 at 17:00 Approved by: Ramses James M.D. on 05/27/2022 at 17:57
--- NOTE | 2022-05-27 16:39 | DI.RAD.S_ITS ---
PROCEDURE: XR CLAVICLE RT INDICATIONS: right shoulder pain TECHNIQUE: 2 views of the clavicle were acquired. COMPARISON: [facility], CR, XR SHOULDER LT MIN 2V, 05/27/2022, 16:40. [facility], CR, XR SHOULDER RT MIN 2V, 05/27/2022, 16:40. [facility], CR, XR CLAVICLE RIGHT, 12/10/2021, 10:56. FINDINGS: Bones: Healing fracture deformity of the mid right clavicle redemonstrated. Acromioclavicular joint is intact. Soft tissues: No suspicious soft tissue calcifications. IMPRESSION: Healing fracture deformity of the mid right clavicle. Dictated by: Tariq Granda [facility] Interpreted: Ramses James MD on 05/27/2022 at 17:01 Transcribed by: SHERI on 05/27/2022 at 17:02 Approved by: Ramses James M.D. on 05/27/2022 at 17:59
== END ==
PROVIDERS: PCP Pediatrics; Referring Provider Pediatrics; Visit Provider Pediatrics
DX: S42.91XA Fracture of right shoulder girdle, part unspecified, initial encounter for closed fracture; M19.012 Primary osteoarthritis, left shoulder; M25.512 Pain in left shoulder; E11.9 Type 2 diabetes mellitus without complications; I10 Essential (primary) hypertension; R74.8 Abnormal levels of other serum enzymes
CPT/HCPCS: 73000; 73030

== ENCOUNTER → 2022-07-15 12:53 | Outpatient (CLI) | payer OTHER, MEDICAID, SELFPAY | PROVIDERS: PCP Pediatrics; Referring Provider Pediatrics; Visit Provider Pediatrics | DX: Z12.31 Encounter for screening mammogram for malignant neoplasm of breast (principal); Z53.20 Procedure and treatment not carried out because of patient's decision for unspecified reasons ==

== ENCOUNTER → 2022-10-18 15:45 | Outpatient (CLI) | payer OTHER, MEDICAID, SELFPAY ==
--- NOTE | 2022-10-18 | DI.MRI.S_ITS ---
PROCEDURE: MR SHOULDER RT WO CON INDICATIONS: Right shoulder pain TECHNIQUE: Noncontrast oblique coronal T2 fast spin echo with fat saturation, oblique sagittal T1 spin echo and T2 fast spin echo with fat saturation, axial T1 spin echo and T2 fast spin echo with fat saturation through the shoulder. COMPARISON: [facility], CR, XR CLAVICLE RIGHT, 08/25/2022, 13:47. [facility], CR, XR SHOULDER LT MIN 2V, 05/27/2022, 16:40. [facility], CR, XR SHOULDER RT MIN 2V, 05/27/2022, 16:40. FINDINGS: Image quality: There are motion artifacts. Rotator cuff: There is moderate tendinosis of the subscapularis tendon with partial-thickness tear of the superior fibers. There is mild supraspinatus tendinosis. The infraspinatus tendon appears normal. Sagittal images demonstrate no rotator cuff muscle atrophy. Bones and bursae: There is old healed clavicular shaft fracture. No acute bone marrow contusions or fractures. Mild acromioclavicular and moderate glenohumeral joint degeneration. The acromion demonstrates conventional anatomy, without an os acromiale. No pathologic subacromial-subdeltoid or subcoracoid bursal fluid is present. Capsule and soft tissues: There is degenerative superior labral fraying. The long head of the biceps tendon demonstrates normal location and morphology. The rotator interval appears normal, without fibrosis. The coracohumeral ligament is normal in thickness. IMPRESSION: 1. Partial-thickness tear of the superior fibers of the subscapularis tendon and moderate tendinosis. 2. Mild supraspinatus tendinosis without discrete tendon tear. 3. Mild acromioclavicular and moderate glenohumeral joint degeneration. 4. Degenerative superior labral fraying. 5. Old healed clavicular shaft fracture. Dictated by: Antonio Sanabria M.D. on 10/19/2022 at 7:33 Approved by: Antonio Sanabria M.D. on 10/20/2022 at 9:43
== END ==
PROVIDERS: PCP Family Medicine; Referring Provider Orthopaedic Surgery; Visit Provider Orthopaedic Surgery
DX: M75.111 Incomplete rotator cuff tear or rupture of right shoulder, not specified as traumatic (principal); M19.011 Primary osteoarthritis, right shoulder; S42.021S Displaced fracture of shaft of right clavicle, sequela
CPT/HCPCS: 73221

== ENCOUNTER → 2023-03-15 13:09 | Outpatient (CLI) | payer OTHER, MEDICAID, SELFPAY ==
[2023-03-15 13:56] LABS: Add Manual Diff / Slide Review NO; Basophils Absolute Auto 100 /uL (0-100); Basophils Percent Auto 0.6 % (0-2); Eosinophils Absolute Auto 200 /uL (0-450); Eosinophils Percent Auto 1.9 % (2-4); Hematocrit 40.6 % (36-46); Hemoglobin 14.6 g/dL (12.0-16.0); Lymphocytes Absolute Auto 2800 /uL (1100-4500); Lymphocytes Percent Auto 33.4 % (25-40); Mean Corpuscular Hemoglobin 34.3 PG (26-34); Mean Corpuscular Volume 95.2 fL (80-100); Monocytes Absolute Auto 500 /uL (0-900); Monocytes Percent Auto 5.6 % (3-14); Neutrophils Absolute Auto 4900 /uL (1500-7000); Neutrophils Percent Auto 58.5 % (50-75); Platelet Count 204 X10^3/uL (150-400); Red Blood Cell Count 4.26 X10^6/uL (4.0-5.2); Red Cell Distribution Width 13.1 % (11.6-14.8); White Blood Cell Count 8.3 X10^3/uL (4.5-11.0)
[2023-03-15 14:14] LABS: Alanine Aminotransferase 23 IU/L (<35); Albumin 4.6 g/dL (3.5-5.0); Albumin Globulin Ratio 1.4 (1.0-2.8); Alkaline Phosphatase 82 U/L (38-126); Aspartate Aminotransferase 30 IU/L (14-36); BUN Creatinine Ratio 27.1 (6-22); Blood Urea Nitrogen 13 mg/dL (7-17); Calcium 9.3 mg/dL (8.4-10.2); Carbon Dioxide 22 mmol/L (22-32); Chloride 102 mmol/L (98-107); Cholesterol 206 mg/dL (140-199); Estimated Glomerular Filt Rate > 60 mL/min (>60); Globulin 3.3 g/dL (1.7-4.1); Glucose 119 mg/dL (70-100); HDL Cholesterol 53 mg/dL (40-60); HEMOLYSIS < 15 (0-50); LDL Cholesterol Calculated 96 mg/dL (<100); Potassium 4.3 mmol/L (3.4-5.1); Sodium 135 mmol/L (137-145); Total Protein 7.9 g/dL (6.3-8.2); Triglycerides 286 mg/dL (35-150)
[2023-03-15 14:45] LABS: TSH w/ Reflex to FT4 1.96 uIU/mL (0.47-4.68)
[2023-03-15 16:14] LABS: Microalbumin Urine Random < 0.6 mg/dL (0-1.6)
== END ==
PROVIDERS: PCP Registered Nurse Diabetes Educator; Referring Provider Registered Nurse Diabetes Educator; Visit Provider Registered Nurse Diabetes Educator
DX: R74.8 Abnormal levels of other serum enzymes (principal); E11.9 Type 2 diabetes mellitus without complications; I10 Essential (primary) hypertension
CPT/HCPCS: 36415; 80053; 80061; 82043; 82570; 83036; 84443; 85025

== ENCOUNTER → 2023-05-09 14:49 | Outpatient (CLI) | payer OTHER, MEDICAID, SELFPAY ==
--- NOTE | 2023-05-09 | DI.MG.S_ITS ---
BILATERAL DIGITAL SCREENING MAMMOGRAM 3D/2D WITH CAD: 05/09/2023 CLINICAL: Routine screening. Family history of breast cancer. Comparison is made to exam dated: 08/17/2016 mammogram - [facility]. There are scattered areas of fibroglandular density in both breasts (category b / 25%-50% glandular tissue). Current study was also evaluated with a Computer Aided Detection (CAD) system. No significant masses, calcifications, or other findings are seen in either breast. There has been no significant interval change. IMPRESSION: NEGATIVE There is no mammographic evidence of malignancy. A 1 year screening mammogram is recommended. Based on the Tyrer Cuzick model (a risk assessment model) the patient's lifetime risk is 13.0% and her 10 year risk is 2.8%. According to the ACR, ACS, and NCCN guidelines, an annual breast MRI exam along with mammogram is recommended if the patient's lifetime risk is 20% or greater. This exam was interpreted at Station ID: [id number]. NOTE: For mammograms, a report in lay terms will be sent to the patient. Approximately 15% of breast malignancies will not be visualized mammographically. In the management of a palpable breast mass, a negative mammogram must not discourage biopsy of a clinically suspicious lesion. Electronically Signed By: Giovanni smith/radha:05/09/2023 16:13:21 letter sent: Normal Exam ACR BI-RADS Category 1: Negative [id number]
== END ==
PROVIDERS: PCP Registered Nurse Diabetes Educator; Referring Provider Registered Nurse Diabetes Educator; Visit Provider Registered Nurse Diabetes Educator
DX: Z12.31 Encounter for screening mammogram for malignant neoplasm of breast (principal); Z80.3 Family history of malignant neoplasm of breast; R10.9 Unspecified abdominal pain; R35.0 Frequency of micturition
CPT/HCPCS: 77063; 77067; 81002; 87086

== ENCOUNTER → 2023-05-09 15:49 | Outpatient (CLI) | payer OTHER, MEDICAID, SELFPAY | PROVIDERS: PCP Registered Nurse Diabetes Educator; Visit Provider Registered Nurse Diabetes Educator | DX: R10.9 Unspecified abdominal pain (principal); R35.0 Frequency of micturition | CPT/HCPCS: 87086 ==

== ENCOUNTER → 2023-05-10 14:49 | Outpatient (CLI) | payer OTHER, MEDICAID, SELFPAY ==
--- NOTE | 2023-05-10 14:49 | DI.US.S_ITS ---
PROCEDURE: US RENAL COMPLETE INDICATIONS: Right flank pain and increased urinary frequency TECHNIQUE: Real-time scanning was performed of the kidneys and bladder, with image documentation. COMPARISON: [facility], , RENAL COMPLETE, 01/21/2013, 9:11. FINDINGS: Kidneys: Kidneys are normal in size. Right kidney measures 10.5 cm long; left kidney measures 12.6 cm long. Right renal cortical thickness is 1.3 cm; left renal cortical thickness is 1.5 cm. Renal cortical echotexture is normal. No hydronephrosis or nephrolithiasis. No suspicious solid mass lesions. No complex renal cystic lesions which require follow-up. Bladder: Pre-void bladder volume is 126 mL. Post-void residual is 5 mL. Pre-void images demonstrate no intraluminal masses or stones. On pre-void images, both ureteral jets are noted with color Doppler interrogation. (Of note, ureteral jets may not be detectable in up to 25% of cases due to insufficient differences in specific gravity between ureteral and bladder urine). Miscellaneous: No free pelvic fluid. IMPRESSION: No hydronephrosis. Dictated by: Venkat Luke M.D. on 05/10/2023 at 16:43 Approved by: Venkat Luke M.D. on 05/10/2023 at 16:45
== END ==
PROVIDERS: PCP Registered Nurse Diabetes Educator; Referring Provider Registered Nurse Diabetes Educator; Visit Provider Registered Nurse Diabetes Educator
DX: R10.9 Unspecified abdominal pain (principal); R35.0 Frequency of micturition
CPT/HCPCS: 76770

== ENCOUNTER → 2023-05-18 14:14 | Outpatient (CLI) | payer OTHER, MEDICAID, SELFPAY ==
[2023-05-18 14:37] LABS: Appearance Urine UA CLEAR; Bilirubin Urine UA NEGATIVE (NEGATIVE); Color Urine UA ORANGE; Glucose Urine UA TRACE g/dL (Negative); Ketones Urine UA NEGATIVE (NEGATIVE); Leukocyte Esterase Urine UA NEGATIVE (NEGATIVE); Occult Blood Urine UA NEGATIVE (Negative); Specific Gravity Urine UA <=1.005 (1.000-1.035)
[2023-05-18 15:06] LABS: pH Urine UA 5.5 (4.5-8.0)
[2023-05-18 15:07] LABS: Bacteria Urine Occasional (0-1); Culture Indicated Urine Specimen Cultured; RBC Urine None Seen (0-5/HPF); Squamous Epithelial Cell Urine 1-5 /HPF (0-5/HPF); WBC Urine 1-5/HPF (0-5/HPF)
== END ==
PROVIDERS: PCP Registered Nurse Diabetes Educator; Referring Provider Registered Nurse Diabetes Educator; Visit Provider Registered Nurse Diabetes Educator
DX: R30.0 Dysuria (principal)
CPT/HCPCS: 81001; 87086

== ENCOUNTER → 2023-07-24 11:02 | Outpatient (CLI) | payer OTHER, MEDICAID, SELFPAY ==
[2023-07-24 12:08] LABS: Alanine Aminotransferase 54 IU/L (<35); Albumin 4.5 g/dL (3.5-5.0); Albumin Globulin Ratio 1.7 (1.0-2.8); Alkaline Phosphatase 78 U/L (38-126); Aspartate Aminotransferase 52 IU/L (14-36); BUN Creatinine Ratio 22.2 (6-22); Bilirubin Total 1.2 mg/dL (0.2-1.3); Blood Urea Nitrogen 12 mg/dL (7-17); Calcium 9.9 mg/dL (8.4-10.2); Carbon Dioxide 28 mmol/L (22-32); Chloride 97 mmol/L (98-107); Cholesterol 163 mg/dL (140-199); Estimated Glomerular Filt Rate > 60 mL/min (>60); Globulin 2.6 g/dL (1.7-4.1); Glucose 152 mg/dL (70-100); HDL Cholesterol 49 mg/dL (40-60); HEMOLYSIS < 15 (0-50); LDL Cholesterol Calculated 51 mg/dL (<100); Lipase 65 U/L (23-300); Magnesium 1.8 mg/dL (1.6-2.3); Potassium 3.9 mmol/L (3.4-5.1); Sodium 134 mmol/L (137-145); Total Protein 7.1 g/dL (6.3-8.2); Triglycerides 317 mg/dL (35-150)
[2023-07-24 12:09] LABS: Appearance Urine UA CLEAR; Bilirubin Urine UA 1+ (NEGATIVE); Color Urine UA YELLOW; Glucose Urine UA NEGATIVE (Negative); Ketones Urine UA TRACE (NEGATIVE); Leukocyte Esterase Urine UA NEGATIVE (NEGATIVE); Nitrite Urine UA POSITIVE (Negative); Occult Blood Urine UA NEGATIVE (Negative); Protein Urine UA TRACE (Negative); pH Urine UA 6.5 (4.5-8.0)
[2023-07-24 12:16] LABS: Bacteria Urine None Seen; RBC Urine None Seen (0-5/HPF); Squamous Epithelial Cell Urine None Seen (0-5/HPF); WBC Urine None Seen (0-5/HPF)
[2023-07-24 12:17] LABS: Culture Indicated Urine Cult Not Indicated; Ictotest Urine Negative (Negative)
== END ==
PROVIDERS: PCP Registered Nurse Diabetes Educator; Referring Provider Registered Nurse Diabetes Educator; Visit Provider Registered Nurse Diabetes Educator
DX: R11.0 Nausea (principal); R00.2 Palpitations; I10 Essential (primary) hypertension; E78.5 Hyperlipidemia, unspecified; R82.90 Unspecified abnormal findings in urine
CPT/HCPCS: 36415; 80053; 80061; 81001; 83690; 83735; 87086

== ENCOUNTER → 2023-07-24 11:45 | Outpatient (CLI) | payer OTHER, MEDICAID, SELFPAY ==
--- NOTE | 2023-07-24 11:46 | DI.US.S_ITS ---
PROCEDURE: US PELVIC COMPLETE INDICATIONS: RIGHT PELVIC PAIN TECHNIQUE: Real-time scanning was performed of the pelvic organs, with image documentation. Additional endovaginal scanning was necessary due to incomplete visualization of the adnexal and endometrial structures by transabdominal scanning. COMPARISON: [facility], , PELVIC COMPLETE, 09/05/2014, 5:54. FINDINGS: Uterus: Surgically absent. Ovaries: The ovaries are not visualized. Other: No pathologic free abdominal or pelvic fluid. IMPRESSION: Limited study. Nonvisualization of the ovaries. If further characterization is warranted, gynecologic protocol pelvic MRI is recommended. We strive to produce accurate, complete, and clear reports of imaging services. To assist us in improving patient care, this report was composed using standard report templates and voice recognition software. Therefore, it may contain abnormal punctuation, insertions and/or omissions. Occasional wrong-word or sound-alike substitutions may occur. Though we review the report and make efforts to correct it, we do recommend that the report be read carefully in proper context to recognize any text inaccuracies. Dictated by: Selam العلي M.D. on 07/24/2023 at 13:33 Approved by: Selam العلي M.D. on 07/24/2023 at 13:34
== END ==
PROVIDERS: PCP Registered Nurse Diabetes Educator; Referring Provider Registered Nurse Diabetes Educator; Visit Provider Registered Nurse Diabetes Educator
DX: R00.2 Palpitations (principal); R10.2 Pelvic and perineal pain; R11.0 Nausea; I10 Essential (primary) hypertension; E78.5 Hyperlipidemia, unspecified; R82.90 Unspecified abnormal findings in urine
CPT/HCPCS: 36415; 76830; 76856; 80053; 80061; 81001; 83690; 83735; 87086; 93242

== ENCOUNTER → 2023-08-03 10:06 | Outpatient (CLI) | payer OTHER, MEDICAID, SELFPAY ==
[2023-08-03 12:27] LABS: Appearance Urine UA CLEAR; Bilirubin Urine UA NEGATIVE (NEGATIVE); Color Urine UA YELLOW; Glucose Urine UA NEGATIVE (Negative); Ketones Urine UA NEGATIVE (NEGATIVE); Leukocyte Esterase Urine UA NEGATIVE (NEGATIVE); Nitrite Urine UA NEGATIVE (Negative); Occult Blood Urine UA NEGATIVE (Negative); Protein Urine UA NEGATIVE (Negative); Specific Gravity Urine UA 1.015 (1.000-1.035); Urobilinogen Urine UA 0.2 E.U./dL (0.2)
[2023-08-03 13:02] LABS: Bacteria Urine Occasional (0-1); Culture Indicated Urine Cult Not Indicated; RBC Urine None Seen (0-5/HPF); Squamous Epithelial Cell Urine 1-5 /HPF (0-5/HPF); WBC Urine 0-1/HPF (0-5/HPF)
== END ==
PROVIDERS: PCP Registered Nurse Diabetes Educator; Referring Provider Registered Nurse Diabetes Educator; Visit Provider Registered Nurse Diabetes Educator
DX: N30.00 Acute cystitis without hematuria (principal)
CPT/HCPCS: 81001

== ENCOUNTER → 2023-12-11 14:29 | Outpatient (CLI) | payer OTHER, MEDICAID, SELFPAY ==
--- NOTE | 2023-12-11 14:30 | DI.CT.S_ITS ---
PROCEDURE: CT ABDOMEN PELVIS W CON INDICATIONS: 3 months pelvic pain TECHNIQUE: After the administration of intravenous contrast, axial sections acquired from the lung bases to the pubic symphysis. Coronal and sagittal reformats were performed. For radiation dose reduction, the following was used: automated exposure control, adjustment of mA and/or kV according to patient size. COMPARISON: [facility], CT, CT CHEST ABD PEL W CON, 04/05/2021, 23:09. FINDINGS: Image quality: Diagnostic. Lower Chest: Moderate-sized hiatal hernia. Lung bases are clear. Heart size is normal. ABDOMEN: Liver: No solid mass. There is diffuse hypoattenuation of the liver parenchyma relative to the spleen compatible with hepatic steatosis. Gallbladder: No radiopaque gallstones or wall thickening. Biliary ducts: No biliary dilation. Pancreas: No ductal dilation. Spleen: Size is within normal limits. Adrenal Glands: Stable 1.1 cm nodular contour of the left superior adrenal gland. Kidneys and Ureters: No hydronephrosis. No solid mass. No complex renal cystic lesion which requires follow up. Stomach and Bowel: Normal colonic caliber, without significant wall thickening. Colonic diverticulosis without acute diverticulitis. Peritoneum: No abnormal intraperitoneal fluid. No free air. Ventral Wall: No significant ventral hernia. Abdominal Nodes: No retroperitoneal or mesenteric adenopathy by size criteria. Vessels: Aorta and inferior vena cava are normal in size. PELVIS: Pelvic Organs: Status post hysterectomy. Bladder: Urinary bladder thickness appears normal for degree of distention. No perivesicular inflammatory stranding. Pelvic Nodes: No enlarged lymph nodes. Miscellaneous: No inguinal hernias are seen. Bones: No aggressive osseous abnormality. Visualized osseous structures appear intact without acute fracture or focal destructive lesion. No acute compression fractures of the imaged spine. IMPRESSION: CT abdomen and pelvis without acute abnormalities to explain patient's symptoms. Colonic diverticulosis without acute diverticulitis. Moderate sized hiatal hernia. Hepatic steatosis. Status post hysterectomy. Dictated by: Edgar Dawson M.D. on 12/11/2023 at 18:10 Approved by: Edgar Dawson M.D. on 12/11/2023 at 18:18
== END ==
PROVIDERS: PCP Registered Nurse Diabetes Educator; Referring Provider Student in an Organized Health Care Education/Training Program; Visit Provider Student in an Organized Health Care Education/Training Program
DX: K44.9 Diaphragmatic hernia without obstruction or gangrene (principal); K76.0 Fatty (change of) liver, not elsewhere classified; R10.2 Pelvic and perineal pain; K57.90 Diverticulosis of intestine, part unspecified, without perforation or abscess without bleeding; Z90.710 Acquired absence of both cervix and uterus
CPT/HCPCS: 74177; Q9967

== ENCOUNTER → 2024-03-28 13:23 | Outpatient (CLI) | payer OTHER, MEDICAID, SELFPAY ==
--- NOTE | 2024-03-28 13:25 | DI.ECHO.S_ITS ---
[facility] : : [address] : : [place] : : [id number] : : Phone: [phone] Echocardiogram Report + + :Name: BIANCA GOYAL Study Date: 03/28/2024 Height: 64 in : :[facility] ReadingLocation: Weight: 145 lb : : Gender: Female BSA: 1.7 m2 : :: 1975 Age: 48 yrs BP: 105/79 mmHg: :Reason For Study: PALPITATIONS : :Ordering Physician: ROBERT, : :SANIA Performed By: Flor Farris : :Referring: SANIA JONES : + + Interpretation Summary The ejection fraction is estimated to be 60-65%. Diastolic parameters suggest probable normal left ventricular diastolic function and normal filling pressures. The right ventricle is normal in size and function. No significant valvular abnormalities. Pulmonary artery pressures cannot be estimated because of the lack of a measurable TR jet velocity but the IVC suggests a CVP of around 3 mmHg. Procedure: A two-dimensional transthoracic echocardiogram with color flow and Doppler was performed. The study quality was technically adequate. There is no prior echocardiogram noted for this patient. The patient was in sinus rhythm with heart rates between 75-84 bpm during the exam. Left Ventricle: The left ventricle is normal in size and wall thickness. The ejection fraction is estimated to be 60-65%. Diastolic parameters suggest probable normal left ventricular diastolic function and normal filling pressures. Right Ventricle: The right ventricle is normal in size and function. Atria: The left atrial size is normal. Right atrial size is normal. There is no Doppler evidence for an interatrial shunt. Mitral Valve: The mitral valve is normal in structure and function. There is trace mitral regurgitation. Aortic Valve: The aortic valve is trileaflet. The aortic valve opens well. There is no aortic valve stenosis. No aortic regurgitation is present. Tricuspid Valve: The tricuspid valve is normal in structure and function. There is trace tricuspid regurgitation. Pulmonary artery pressures cannot be estimated because of the lack of a measurable TR jet velocity but the IVC suggests a CVP of around 3 mmHg. Pulmonic Valve: The pulmonic valve leaflets are thin and pliable; valve motion is normal. There is no pulmonic valvular regurgitation. Great Vessels: The aortic root is normal size. The dimensions of the ascending aorta are normal. The IVC is of normal diameter and collapses greater than 50% with a sniff. This suggests a low right atrial pressure of 3 mm Hg. Pericardium/ Pleura There is no pericardial effusion. There is no pleural effusion. MMode/2D Measurements & Calculations LVIDd: 4.2 cm LVOT diam: 2.0 cm LVIDs: 2.8 cm Ao root diam: 3.0 cm FS: 32.2 % asc Aorta Diam: 3.1 cm IVSd: 0.74 cm Ao Arch Diam (Prox Trans): 2.5 cm LVPWd: 0.61 cm LV nagy. diameter/BSA (cm/m^2): 2.5 LV sys. diameter/BSA (cm/m^2): 1.7 LA A2 area: 12.9 cm2 RA long axis: 4.6 cm LA A4 area: 10.1 cm2 RA area: 11.2 cm2 LA length (vol): 4.1 cm RA vol: 23.1 ml LA vol: 27.1 ml RA : 13.6 ml/m2 LA vol index: 15.9 ml/m2 IVC diam: 0.81 cm RVD1 (basal): 2.9 cm RVD2 (mid): 2.1 cm TAPSE: 1.6 cm Doppler Measurements & Calculations Ao V2 max: 138.2 cm/sec LVOT Max Mark: 119.5 cm/sec Ao V2 mean: 109.2 cm/sec LV V1 max P.7 mmHg Ao max P.6 mmHg LV V1 VTI: 24.6 cm Ao mean P.0 mmHg RENAY(I,D): 2.5 cm2 Ao V2 VTI: 29.1 cm RENAY(V,D): 2.6 cm2 sev ratio: 0.85 RENAY indexed to BSA (cm^2/m^2): 1.5 MV E max mark: 61.9 cm/sec PA V2 max: 73.2 cm/sec MV A max mark: 56.6 cm/sec PA V2 mean: 56.5 cm/sec MV E/A: 1.1 PA mean P.3 mmHg Med Peak E' Mark: 8.8 cm/sec PA pr(Accel): 27.6 mmHg E/E' med: 7.0 Lat Peak E' Mark: 11.7 cm/sec E/E' lat: 5.3 E/e' average: 6.1 MV dec time: 0.17 sec SV(LVOT): 73.9 ml Reading Physician:01:[id number] PM
--- NOTE | 2024-04-05 10:41 | DI.NM.S_ITS ---
DATE OF SERVICE: 03/28/2024 EXERCISE TREADMILL STRESS TEST PROCEDURE: Exercise treadmill stress test without imaging. ORDERING PROVIDER: Keke Saenz M.D. INDICATIONS: The patient is a 48-year-old diabetic female with palpitations. FINDINGS: 1. The patient was able to exercise for 6 minutes 41 seconds on a standard Adrian protocol suggesting mild-moderately reduced exercise capacity with an MARTIN of +17%, achieving 7.0 METS. 2. She had a mildly blunted heart rate response to exercise, with a resting heart rate of 85 BPM increasing to a maximum of 141 BPM (82% of her predicted maximum). She had a normal blood pressure response. 3. She had no chest discomfort or other anginal symptoms, although described mild dizziness despite normal blood pressures. 4. Her resting ECG showed sinus rhythm with normal ST segments. There are no significant ST-segment shifts with stress. She developed occasional isolated PVCs with exercise, but without any complex ventricular ectopy. Her PVCs resolved early in recovery. IMPRESSION: 1. Normal exercise treadmill stress test for ischemia, although with mildly reduced sensitivity because of the mildly blunted heart rate response to exercise. 2. [id number] impaired exercise capacity without angina. 3. She had sinus rhythm, although with occasional premature ventricular contractions with exercise, but no complex ventricular ectopy. Lien Aiken - BALDOMERO/silvia/FILIPPO doc#: [id number]/job#: [id number] dd: 03/28/2024 17:39:00 dt: 03/28/2024 22:18:00 DICTATING MD/COPIES TO: Kenny Hebert MD; Keke Saenz M.D. COPIES MNE: HUSSEIN;
== END ==
PROVIDERS: PCP Registered Nurse Diabetes Educator; Referring Provider Physician Assistant; Visit Provider Physician Assistant
DX: R00.2 Palpitations (principal)
CPT/HCPCS: 93017; 93306

== ENCOUNTER 2024-04-01 14:19 | Emergency (ER) | payer OTHER, MEDICAID, SELFPAY ==
--- NOTE | 2024-04-01 15:00 | DI.RAD.S_ITS ---
PROCEDURE: XR KNEE LT 3V INDICATIONS: L knee pain TECHNIQUE: 3 views of the knee were acquired. COMPARISON: [facility], , KNEE 3V LEFT, 04/02/2016, 20:56. FINDINGS: Bones: No fractures or dislocations. No suspicious bony lesions. Soft tissues: No joint effusion. No suspicious soft tissue calcifications. IMPRESSION: No acute bony abnormality or significant effusion. Dictated by: Pierce Melendez M.D. on 04/01/2024 at 15:26 Approved by: Pierce Melendez M.D. on 04/01/2024 at 15:26
--- NOTE | 2024-04-01 15:00 | DI.US.S_ITS ---
PROCEDURE: US PERIPH VENOUS LOW EXTREM LT INDICATIONS: L leg pain behind knee TECHNIQUE: Real-time imaging, as well as color and pulse Doppler interrogation, were performed of the lower extremity deep veins from the inguinal ligament to the popliteal fossa, with documentation of the visualized calf veins. COMPARISON: None. FINDINGS: The common femoral, femoral, popliteal, and the visualized calf veins are normally compressible, and free of intraluminal thrombus. Color and pulse Doppler demonstrate normal phasic intraluminal flow. There is normal augmentation response to distal compression maneuver. IMPRESSION: No findings of lower extremity deep venous thrombosis. Dictated by: Selam العلي M.D. on 04/01/2024 at 16:10 Approved by: Selam العلي M.D. on 04/01/2024 at 16:11
[2024-04-01 15:09] VITALS: BP 112/77; PULSE 82; RESP 16; TEMP 36.6; O2SAT 99; BMI 24.9
--- NOTE | 2024-04-01 16:09 | ED_ITS ---
HPI - Extremity Problem <Yossi Mcdaniels PA-C - Last Filed: 04/01/24 18:34> General Chief complaint: Extremity Problem,Nontraumatic Stated complaint: Dr. Gold sent for US back of L leg R/O blood clot Time Seen by Provider: 04/01/24 14:57 Source: patient Mode of arrival: Ambulatory History of Present Illness HPI Narrative: 48-year-old female presents to the ED with 1 month of left knee pain. Patient states that her pain started spontaneously, denies any trauma, has worsened especially over the last week. Patient saw her PCP Dr. Phillips who sent her to the ED to rule out a DVT. Patient localizes the pain to the back of the left knee and to the lower hamstrings. Denies numbness, tingling, weakness. Able to bear weight and walk. Related Data Home Medications Medication Instructions Recorded Confirmed blood-glucose meter (True Metrix #1 ea 01/01/24 01/01/24 Air Glucose Meter) Previous Rx's Medication Instructions Recorded lancets 33 gauge (BD Ultra Fine #100 ea 02/21/23 Lancets) rosuvastatin 10 mg tablet 10 mg PO DAILY #90 tabs 03/15/23 losartan 50 mg-hydrochlorothiazide 1 tab PO DAILY #90 tabs 08/28/23 12.5 mg tablet methocarbamol 500 mg tablet 1,000 mg (2 x 500 mg) PO Q8H PRN 12/07/23 muscle spasm #60 tabs albuterol sulfate 90 mcg/actuation 2 puff inhalation Q4-6H PRN 12/13/23 aerosol inhaler shortness of breath or wheezing #8.5 grams blood-glucose meter (TrueTrack 1 ea miscellaneous ONCE #1 ea 12/13/23 Smart System kit) inhalational spacing device #1 ea 12/13/23 (PrimeAire spacer) blood sugar diagnostic (Blood #50 ea 12/14/23 Glucose Test strips) amoxicillin 875 mg-potassium 1 tab PO BID #20 tabs 01/01/24 clavulanate 125 mg tablet epinephrine 0.3 mg/0.3 mL 0.3 mg (0.3 mL) IM ONCE PRN 01/01/24 injection, auto-injector (EpiPen) hypersensitivity reaction #2 ea gabapentin 100 mg capsule 200 mg (2 x 100 mg) PO BEDTIME 01/01/24 #180 caps tizanidine 2 mg tablet 4 mg (2 x 2 mg) PO BEDTIME PRN 01/01/24 muscle spasm #180 tabs amitriptyline 10 mg tablet 10 mg PO BEDTIME #30 tabs 03/05/24 metoprolol succinate 25 mg 25 mg PO DAILY #90 tabs 03/20/24 tablet,extended release 24 hr sodium sul 1.479 gram-potas ch See Rx Instructions PO PER PKG DIR 03/25/24 0.188 gram-magnes sul 0.225 gram #24 tabs tablet (Sutab) Allergies Allergy/AdvReac Type Severity Reaction Status Date / Time acetaminophen [From PERCOCET] Allergy Unknown Verified 04/01/24 15:09 aspirin [From PERCODAN] Allergy Unknown Verified 04/01/24 15:09 lithium [LITHIUM] Allergy Unknown Verified 04/01/24 15:09 morphine [MORPHINE] Allergy Unknown HIVES Verified 04/01/24 15:09 oxycodone [From PERCODAN] Allergy Unknown Verified 04/01/24 15:09 bee venom protein (honey bee) AdvReac Severe Shortness Verified 04/01/24 15:09 of breath Review of Systems <Yossi Mcdaniels PA-C - Last Filed: 04/01/24 18:34> Constitutional Constitutional: Denies chills, Denies fatigue, Denies fever(s), Denies frequent falls, Denies lethargy and Denies weakness Eyes Eyes: Denies change in vision, Denies eye discharge, Denies irritation and Denies loss of vision ENT Ears, Nose, Mouth, and Throat: Denies change in voice, Denies dizziness, Denies neck pain, Denies sore throat and Denies throat swelling Cardiovascular Cardiovascular: Denies chest pain, Denies irregular heart rhythm, Denies lightheadedness, Denies palpitations, Denies dyspnea, Denies dyspnea on exertion and Denies orthopnea Respiratory Respiratory: Denies cough, Denies dyspnea, Denies dyspnea on exertion and Denies wheezing Gastrointestinal Gastrointestinal: Denies abdominal pain, Denies change in bowel habits, Denies diarrhea, Denies nausea and Denies vomiting Musculoskeletal Musculoskeletal: Denies neck pain and Denies numbness Comments: Left knee pain Integumentary/Breasts Skin/Breast: Denies pruritus, Denies erythema, Denies rash and Denies wounds Neurologic Neurologic: Denies behavioral changes, Denies confusion, Denies dizziness, Denies frequent falls, Denies loss of vision, Denies numbness and Denies weakness Psychiatric Psychiatric: Denies anxiety, Denies behavioral changes, Denies confusion, Denies depression, Denies homicidal ideation and Denies suicidal ideation Endocrine Endocrine: Denies fatigue, Denies flushing and Denies palpitations Hematologic/Lymphatic Hematologic/Lymphatic: Denies easy bruising Allergic/Immunologic Allergic/Immunologic: Denies urticaria, Denies throat swelling and Denies wheezing Patient History <Yossi Mcdaniels PA-C - Last Filed: 04/01/24 18:34> Medical History Fatty liver disease, nonalcoholic Dyslipidemia Well woman exam with routine gynecological exam Shoulder pain, right Abnormal laboratory test result Shoulder fracture, right Bee sting allergy Blurred vision Hypertension Alcoholism Surgical History History of partial hysterectomy Social History Smoking Status: Current every day smoker Tobacco: How many years used: 30 quit status: considering quitting second hand exposure: Yes (currently at home ) alcohol intake: former substance use type: does not use Smoking Status: Current every day smoker tobacco type: cigarettes alcohol intake frequency: holidays/special occasions only Alcohol type: wine and hard liquor Substance Use Type: does not use Exam <Yossi Mcdaniels PA-C - Last Filed: 04/01/24 18:34> Narrative Exam Narrative: Const General:?cooperative, healthy appearing and comfortable [facility] Head:?normal to inspection Ears:?hearing grossly normal bilaterally Nose:?external nose normal Face and sinus:?normal facial exam and sinuses nontender Mouth:?oral mucosae normal Throat:?posterior oropharynx normal Eyes General:?appearance normal, both eyes and all related structures Neck Neck:?normal visual inspection and no lymphadenopathy noted Resp Effort & Inspection:?normal respiratory effort Auscultation:?clear to auscultation bilaterally Cardio Rate:?regular rate Rhythm:?regular rhythm Musculoskeletal There is some tenderness to palpation in the left popliteal fossa. No swelling, no bruising, no deformities. Strength and sensation is intact. There is full range of motion. Neurovascularly intact. Neuro General:?patient alert, patient awake and patient oriented x3 Initial Vital Signs Initial Vital Signs: Vital Signs Temperature 97.8 F 04/01/24 15:09 Pulse Rate 82 04/01/24 15:09 Respiratory Rate 16 04/01/24 15:09 Blood Pressure 112/77 04/01/24 15:09 Pulse Oximetry 99 04/01/24 15:09 Oxygen Delivery Method Room Air 04/01/24 15:09 <Grady Olivo MD - Last Filed: 04/05/24 11:41> Initial Vital Signs Initial Vital Signs: Vital Signs Temperature 97.8 F 04/01/24 15:09 Pulse Rate 82 04/01/24 15:09 Respiratory Rate 16 04/01/24 15:09 Blood Pressure 112/77 04/01/24 15:09 Pulse Oximetry 99 04/01/24 15:09 Oxygen Delivery Method Room Air 04/01/24 15:09 Course <Yossi Mcdaniels PA-C - Last Filed: 04/01/24 18:34> Orders Ordered: ED Orders 04/01/24 15:00 US periph venous low extrem lt Stat XR knee LT 3V Stat Vital Signs Vital signs: Vital Signs - 8 hr 04/01/24 15:09 04/01/24 16:39 Temperature 97.8 F Pulse Rate 82 88 Respiratory Rate 16 12 Blood Pressure 112/77 117/79 Pulse Oximetry 99 98 Oxygen Delivery Method Room Air Room Air <Grady Olivo MD - Last Filed: 04/05/24 11:41> Orders Ordered: ED Orders 04/01/24 15:00 US periph venous low extrem lt Stat XR knee LT 3V Stat Vital Signs Vital signs: Vital Signs - 8 hr 04/01/24 15:09 04/01/24 16:39 Temperature 97.8 F Pulse Rate 82 88 Respiratory Rate 16 12 Blood Pressure 112/77 117/79 Pulse Oximetry 99 98 Oxygen Delivery Method Room Air Room Air MDM - Extremity (Nontraumatic) <Yossi Mcdaniels PA-C - Last Filed: 04/01/24 18:34> MDM Narrative Medical decision making narrative: 48-year-old female presents to the ED with 1 month of left knee pain. Concern for DVT versus fracture/dislocation versus musculoskeletal sprain/strain versus Romero cyst versus other. Obtained ultrasound and x-rays, both of which were without acute findings. Discussed findings with patient. Recommend follow-up with PCP Dr. Phillips for further evaluation and treatment. Recommend taking Tylenol and ibuprofen for pain control. ED return precautions discussed with patient. Patient verbalized understanding. Medical records reviewed: Yes Discharge Plan Departure Patient Disposition: Home Clinical Impression: Knee pain Qualifiers: Chronicity: acute Laterality: left Qualified Code(s): M25.562 - Pain in left knee Instructions: DI for Knee Pain Activity Restrictions/Additional Instructions: You were evaluated in the ED today for knee pain. Your ultrasound did not show any blood clots and your x-ray did not show any fractures or dislocations. While it is unclear why you are experiencing this pain, it could possibly be a soft tissue injury such as a musculoskeletal sprain/strain. You may take Tylenol and ibuprofen for pain relief. Please follow-up with your PCP Dr. Phillips as soon as possible for further evaluation and physical therapy refe rrals. Return to the ED if you have worsening symptoms, numbness, tingling, weakness. Prescriptions: No Action methocarbamol 500 mg tablet 1,000 mg PO Q8H PRN (Reason: muscle spasm) Qty: 60 0RF Rx Instructions: for daytime use (DME) Blood Glucose Test Strip See Rx Instructions .Route Qty: 50 3RF Rx Instructions: Use to test blood sugar once daily as directed amitriptyline 10 mg tablet 10 mg PO BEDTIME Qty: 30 0RF Rx Instructions: If inadequate effect and no side effects after 2 weeks, may increase to 2 tabs at bedtime. metoprolol succinate 25 mg tablet extended release 24 hr 25 mg PO DAILY Qty: 90 0RF Sutab 1.479-0.188- 0.225 gram tablet See Rx Instructions PO PER PKG DIR Qty: 24 0RF Rx Instructions: take as directed by Physician (DME) lancets [BD Ultra Fine Lancets] 33 gauge misc See Rx Instructions .ROUTE .MEDSUPPLY Qty: 100 3RF Rx Instructions: Use to test blood glucose ONCE DAILY rosuvastatin 10 mg tablet 10 mg PO DAILY Qty: 90 3RF losartan-hydrochlorothiazide 50-12.5 mg tablet 1 tab PO DAILY Qty: 90 1RF (DME) blood-glucose meter [True Metrix Air Glucose Meter] Misc See Rx Instructions .ROUTE .MEDSUPPLY Qty: 1 Patient Comments: [NO ORIGINAL SIG] Rx Instructions: As directed amoxicillin-pot clavulanate 875-125 mg tablet 1 tab PO BID Qty: 20 0RF tizanidine 2 mg tablet 4 mg PO BEDTIME PRN (Reason: muscle spasm) Qty: 180 1RF gabapentin 100 mg capsule 200 mg PO BEDTIME Qty: 180 1RF epinephrine [EpiPen] 0.3 mg/0.3 mL auto-injector 0.3 mg IM ONCE PRN (Reason: hypersensitivity reaction) Qty: 2 0RF Rx Instructions: Dose: 0.3 mg SC/IM x1; Info: may repeat dose x1 after 5-15min blood-glucose meter [cocone Smart System] Kit 1 ea miscellaneous ONCE Qty: 1 0RF albuterol sulfate 90 mcg/actuation HFA aerosol inhaler 2 puff inhalation Q4-6H PRN (Reason: shortness of breath or wheezing) Qty: 8.5 0RF (DME) PrimeAire Spacer See Rx Instructions .Route Qty: 1 0RF Rx Instructions: As directed Referrals: Zenon Gold ARNP [Primary Care Provider] - Stand Alone Forms: Patient Portal/API ED Sign-out <Grady Olivo MD - Last Filed: 04/05/24 11:41> [facility]: I was immediately available in the department for consultation. ?This documentation has been reviewed and I agree with assessment and plan. Supervised by Grady Olivo MD
[2024-04-01 16:39] VITALS: BP 117/79; PULSE 88; RESP 12; O2SAT 98
== END 2024-04-01 16:39 | disposition home or self-care (01) ==
PROVIDERS: Emergency Provider Student in an Organized Health Care Education/Training Program; PCP Registered Nurse Diabetes Educator
DX: M25.562 Pain in left knee (principal); Z79.899 Other long term (current) drug therapy
CPT/HCPCS: 73562; 93971; 99283

== ENCOUNTER → 2024-06-28 08:58 | Outpatient (CLI) | payer OTHER, MEDICAID, SELFPAY ==
[2024-06-28 10:07] LABS: Hematocrit 43.7 % (36-46); Hemoglobin 15.8 g/dL (12.0-16.0); Mean Corpuscular HGB Conc 36.1 % (30-36); Mean Corpuscular Hemoglobin 33.9 PG (26-34); Mean Corpuscular Volume 93.8 fL (80-100); Platelet Count 243 X10^3/uL (150-400); Red Blood Cell Count 4.66 X10^6/uL (4.0-5.2); Red Cell Distribution Width 13.3 % (11.6-14.8); White Blood Cell Count 9.9 X10^3/uL (4.5-11.0)
[2024-06-28 10:23] LABS: HEMOLYSIS < 15 (0-50); Iron 80 ug/dL (37-170)
[2024-06-28 10:31] LABS: Alanine Aminotransferase 19 IU/L (<35); Albumin 4.5 g/dL (3.5-5.0); Albumin Globulin Ratio 1.7 (1.0-2.8); Alkaline Phosphatase 99 U/L (38-126); Aspartate Aminotransferase 21 IU/L (14-36); BUN Creatinine Ratio 34.4 (6-22); Bilirubin Total 0.9 mg/dL (0.2-1.3); Blood Urea Nitrogen 21 mg/dL (7-17); Calcium 9.7 mg/dL (8.4-10.2); Carbon Dioxide 25 mmol/L (22-32); Chloride 96 mmol/L (98-107); Cholesterol 213 mg/dL (140-199); Estimated Glomerular Filt Rate > 60 mL/min (>60); Globulin 2.6 g/dL (1.7-4.1); Glucose 348 mg/dL (70-100); HDL Cholesterol 32 mg/dL (40-60); HEMOLYSIS < 15 (0-50); LDL Cholesterol Calculated 126 mg/dL (<100); Potassium 4.7 mmol/L (3.4-5.1); Sodium 132 mmol/L (137-145); Total Protein 7.1 g/dL (6.3-8.2); Triglycerides 277 mg/dL (35-150)
[2024-06-28 10:34] LABS: Hemoglobin A1C% w Est Avg Glu 13.2 % (4.0-6.0)
[2024-06-28 10:38] LABS: Vitamin D 25 Hydroxy (D3) 39.7 ng/mL (30.0-100.0)
[2024-06-28 10:42] LABS: Percent Iron Saturation 21 % (15-50); Total Iron Binding Capacity 377 ug/dL (265-497)
[2024-06-28 10:44] LABS: Transferrin 304 mg/dL (206-381)
[2024-06-28 10:55] LABS: Hepatitis B Surface Antigen NEGATIVE s/c (NEGATIVE)
[2024-06-28 10:56] LABS: TSH w/ Reflex to FT4 1.86 uIU/mL (0.47-4.68)
[2024-06-28 11:02] LABS: Ferritin 97 ng/mL (6-137)
[2024-06-28 11:11] LABS: Hep C Virus Ab w/Reflex Quant NEGATIVE s/c (NEGATIVE)
[2024-06-28 12:58] LABS: Creatinine Urine Random 101.55 mg/dL
[2024-06-28 13:04] LABS: Microalbumin Urine Random 0.8 mg/dL (0-1.6)
== END ==
PROVIDERS: PCP Registered Nurse Diabetes Educator; Referring Provider Registered Nurse Diabetes Educator; Visit Provider Registered Nurse Diabetes Educator
DX: E78.5 Hyperlipidemia, unspecified (principal); E11.9 Type 2 diabetes mellitus without complications; I10 Essential (primary) hypertension; R74.8 Abnormal levels of other serum enzymes; K76.0 Fatty (change of) liver, not elsewhere classified; R53.83 Other fatigue
CPT/HCPCS: 36415; 80053; 80061; 82043; 82306; 82570; 82728; 83036; 83540; 83550; 84443; 85027; 86803; 87340

== ENCOUNTER → 2024-10-29 12:21 | Outpatient (CLI) | payer OTHER, SELFPAY ==
[2024-10-29 13:39] LABS: Alanine Aminotransferase 34 IU/L (<35); Albumin 4.7 g/dL (3.5-5.0); Albumin Globulin Ratio 1.7 (1.0-2.8); Alkaline Phosphatase 91 U/L (38-126); Aspartate Aminotransferase 31 IU/L (14-36); Bilirubin Total 0.7 mg/dL (0.2-1.3); Blood Urea Nitrogen 14 mg/dL (7-17); Calcium 9.9 mg/dL (8.4-10.2); Carbon Dioxide 26 mmol/L (22-32); Chloride 97 mmol/L (98-107); Estimated Glomerular Filt Rate > 60 mL/min (>60); Globulin 2.7 g/dL (1.7-4.1); Glucose 284 mg/dL (70-100); HEMOLYSIS < 15 (0-50); Potassium 3.9 mmol/L (3.4-5.1); Sodium 131 mmol/L (137-145); Total Protein 7.4 g/dL (6.3-8.2)
[2024-10-29 13:42] LABS: Hemoglobin A1C% w Est Avg Glu 9.1 % (4.0-6.0)
== END ==
PROVIDERS: PCP Registered Nurse Diabetes Educator; Referring Provider Registered Nurse Diabetes Educator; Visit Provider Registered Nurse Diabetes Educator
DX: E11.9 Type 2 diabetes mellitus without complications (principal); K76.0 Fatty (change of) liver, not elsewhere classified; E78.5 Hyperlipidemia, unspecified; I10 Essential (primary) hypertension
CPT/HCPCS: 36415; 80053; 83036

== ENCOUNTER → 2024-12-27 12:27 | Outpatient (CLI) | payer OTHER, SELFPAY ==
--- NOTE | 2024-12-27 12:28 | DI.US.S_ITS ---
PROCEDURE: US PELVIC LIMITED INDICATIONS: evaluate soft tissue nodule in the right lateral vulva/groin TECHNIQUE: Real-time transabdominal scanning was performed of the pelvis, with image documentation. COMPARISON: None. FINDINGS: Limited ultrasound examination of pelvic soft tissue lateral to the right labia shows small hypoechoic area within subcutaneous soft tissue measures 1.3 x 0.7 x 0.3 cm in size and show low level internal echo. There is suggestion of a subtle tract extending to skin surface. Mild surrounding vascularity is seen. IMPRESSION: Small complex appearing fluid collection in pelvic soft tissue lateral to the right labia measures 1.3 x 0.7 x 0.3 cm in size and is too small for safe ultrasound-guided aspiration. Clinical and potentially sonographic follow-up is recommended. We strive to produce accurate, complete, and clear reports of imaging services. To assist us in improving patient care, this report was composed using standard report templates and voice recognition software. Therefore, it may contain abnormal punctuation, insertions and/or omissions. Occasional wrong-word or sound-alike substitutions may occur. Though we review the report and make efforts to correct it, we do recommend that the report be read carefully in proper context to recognize any text inaccuracies. Dictated by: Nando Carl M.D. on 12/27/2024 at 14:38 Approved by: Nando Carl M.D. on 12/27/2024 at 14:40
== END ==
PROVIDERS: PCP Registered Nurse Diabetes Educator; Visit Provider Radiology Diagnostic Radiology
DX: R19.09 Other intra-abdominal and pelvic swelling, mass and lump (principal)
CPT/HCPCS: 76857